=== PATIENT | female | born 1945 | race Caucasian/White ===

== ENCOUNTER → 2017-09-15 13:05 | Outpatient (CLI) | payer MEDICARE, OTHER, SELFPAY ==
[2017-09-15 14:13] LABS: Absolute Lymphocyte Count 1.25 X10^3/ul (0.83-4.51); Absolute Neutrophil Count 2.6 X10^3/uL (2.0-7.7); Basophil# 0.01 X10^3/uL; Basophil% 0.2 % (0-1); Eosinophil# 0.17 X10^3/uL; Eosinophils% 3.7 % (0-5); Hematocrit 42.8 % (37-47); Hemoglobin 13.8 g/dl (12.0-15.0); Lymphocyte # 1.25 X10^3/ul (4.0); Lymphocyte % 26.9 % (19-41); Mean Corp Hgb Conc 32.2 g/gl (32-36); Mean Corpuscular Hgb 28.6 pg (27.0-32.0); Mean Corpuscular Volume 88.6 fL (81-99); Mean Platelet Vol. 11.4 fl (6.2-12.0); Monocyte# 0.59 X10^3/uL; Monocyte% 12.7 % (0-10); Neutrophil # 2.61 X10^3/uL (2.7-7.7); Neutrophil % 56.3 % (47-70); Platelet Count 187 K/mm3 (150-450); RBC Distribution Width CV 13.4 % (11.6-14.6); RBC Distribution Width SD 43.3 fl (35.1-43.9); Red Blood Count 4.83 M/mm3 (4.2-5.4); White Blood Count 4.6 K/mm3 (4.4-11.0)
[2017-09-15 14:14] LABS: POSITIVE COUNT NO; POSITIVE DIFFERENTIAL NO; POSITIVE MORPHOLOGY NO
[2017-09-15 14:39] LABS: ALB/GLOB Ratio 1.2 RATIO (0.9-2.4); AST(SGOT) 22 U/L (15-37); Alanine Aminotransfer ALT/SGPT 29 U/L (13-56); Albumin, Serum 4.2 g/dL (3.2-5.0); Alkaline Phosphatase 88 U/L (45-117); Anion Gap 6 (5-15); BUN 16 mg/dL (7-18); BUN/Creat Ratio 15.1 RATIO (10-20); Calcium,Total 9.1 mg/dL (8.5-10.1); Chloride 107 mmol/L (98-107); Creatinine, Serum 1.06 mg/dL (0.55-1.02); EST Glomerular Filtration Rate 54 mL/min (>60); Est Glom Filt Rate - Afr Amer 66 mL/min (>60); Globulin 3.4 g/dL (2.2-4.2); Glucose 100 mg/dL (74-106); Potassium 4.5 mmol/L (3.5-5.1); Protein, Total 7.6 g/dL (6.4-8.2); Sodium Level 141 mmol/L (136-145)
== END ==
PROVIDERS: Family Provider Family Medicine; PCP Family Medicine; Visit Provider Internal Medicine Rheumatology
DX: M06.09 Rheumatoid arthritis without rheumatoid factor, multiple sites (principal); M65.331 Trigger finger, right middle finger; M65.332 Trigger finger, left middle finger; I10 Essential (primary) hypertension; E03.9 Hypothyroidism, unspecified; I70.90 Unspecified atherosclerosis
CPT/HCPCS: 36415; 80053; 85025

== ENCOUNTER → 2018-01-28 08:40 | Outpatient (CLI) | payer MEDICARE, OTHER, SELFPAY ==
[2018-01-28 11:04] LABS: AST(SGOT) 20 U/L (15-37); Alanine Aminotransfer ALT/SGPT 30 U/L (13-56); Albumin, Serum 4.3 g/dL (3.2-5.0); Alkaline Phosphatase 79 U/L (45-117); Bilirubin, Direct 0.14 mg/dL (0.00-0.30); Cholesterol 148 mg/dL (200); Globulin 3.7 g/dL (2.2-4.2); High Density Lipoprotein 64 mg/dL; Triglycerides 209 mg/dL; Very Low Density Lipoprotein 42 mg/dL (5-40)
== END ==
PROVIDERS: Family Provider Family Medicine; PCP Family Medicine; Visit Provider Physician Assistant Medical
DX: E78.5 Hyperlipidemia, unspecified (principal); Z79.899 Other long term (current) drug therapy
CPT/HCPCS: 36415; 80061; 80076

== ENCOUNTER → 2018-03-16 12:13 | Outpatient (CLI) | payer MEDICARE, OTHER, SELFPAY ==
[2018-03-16 14:44] LABS: Absolute Lymphocyte Count 1.44 X10^3/ul (0.83-4.51); Basophil# 0.02 X10^3/uL; Basophil% 0.4 % (0-1); Eosinophil# 0.19 X10^3/uL; Eosinophils% 3.7 % (0-5); Hematocrit 43.5 % (37-47); Lymphocyte # 1.44 X10^3/ul (4.0); Lymphocyte % 28.1 % (19-41); Mean Corp Hgb Conc 32.2 g/gl (32-36); Mean Corpuscular Hgb 28.5 pg (27.0-32.0); Mean Corpuscular Volume 88.6 fL (81-99); Monocyte# 0.52 X10^3/uL; Monocyte% 10.2 % (0-10); Neutrophil # 2.95 X10^3/uL (2.7-7.7); Neutrophil % 57.6 % (47-70); Platelet Count 183 K/mm3 (150-450); RBC Distribution Width CV 13.8 % (11.6-14.6); Red Blood Count 4.91 M/mm3 (4.2-5.4); White Blood Count 5.1 K/mm3 (4.4-11.0)
[2018-03-16 14:49] LABS: POSITIVE COUNT NO; POSITIVE DIFFERENTIAL NO; POSITIVE MORPHOLOGY NO
[2018-03-16 15:09] LABS: ALB/GLOB Ratio 1.4 RATIO (0.9-2.4); AST(SGOT) 24 U/L (15-37); Alanine Aminotransfer ALT/SGPT 33 U/L (13-56); Albumin, Serum 4.6 g/dL (3.2-5.0); Alkaline Phosphatase 78 U/L (45-117); Anion Gap 10 (5-15); BUN 18 mg/dL (7-18); BUN/Creat Ratio 15.8 RATIO (10-20); Calcium,Total 9.8 mg/dL (8.5-10.1); Chloride 106 mmol/L (98-107); Creatinine, Serum 1.14 mg/dL (0.55-1.02); EST Glomerular Filtration Rate 50 mL/min (>60); Est Glom Filt Rate - Afr Amer 60 mL/min (>60); Globulin 3.4 g/dL (2.2-4.2); Glucose 103 mg/dL (74-106); Potassium 4.9 mmol/L (3.5-5.1); Sodium Level 143 mmol/L (136-145)
== END ==
PROVIDERS: Family Provider Family Medicine; PCP Family Medicine; Visit Provider Internal Medicine Rheumatology
DX: M06.00 Rheumatoid arthritis without rheumatoid factor, unspecified site (principal); M65.331 Trigger finger, right middle finger; M65.332 Trigger finger, left middle finger; I10 Essential (primary) hypertension; E03.9 Hypothyroidism, unspecified; I70.90 Unspecified atherosclerosis
CPT/HCPCS: 36415; 80053; 85025

== ENCOUNTER → 2018-07-13 09:29 | Outpatient (CLI) | payer MEDICARE, OTHER, SELFPAY ==
[2018-07-13 12:38] LABS: Absolute Lymphocyte Count 1.82 X10^3/ul (0.83-4.51); Absolute Neutrophil Count 3.3 X10^3/uL (2.0-7.7); Basophil# 0.01 X10^3/uL; Basophil% 0.2 % (0-1); Eosinophil# 0.21 X10^3/uL; Eosinophils% 3.5 % (0-5); Hematocrit 43.7 % (37-47); Hemoglobin 14.1 g/dl (12.0-15.0); Lymphocyte # 1.82 X10^3/ul (4.0); Lymphocyte % 30.4 % (19-41); Mean Corp Hgb Conc 32.3 g/gl (32-36); Mean Corpuscular Hgb 28.5 pg (27.0-32.0); Mean Corpuscular Volume 88.3 fL (81-99); Mean Platelet Vol. 11.2 fl (6.2-12.0); Monocyte# 0.62 X10^3/uL; Monocyte% 10.4 % (0-10); Neutrophil # 3.32 X10^3/uL (2.7-7.7); Neutrophil % 55.5 % (47-70); Platelet Count 205 K/mm3 (150-450); RBC Distribution Width CV 13.6 % (11.6-14.6); RBC Distribution Width SD 43.7 fl (35.1-43.9); Red Blood Count 4.95 M/mm3 (4.2-5.4)
[2018-07-13 12:40] LABS: POSITIVE COUNT NO; POSITIVE DIFFERENTIAL NO; POSITIVE MORPHOLOGY NO
[2018-07-13 12:55] LABS: ALB/GLOB Ratio 1.2 RATIO (0.9-2.4); AST(SGOT) 21 U/L (15-37); Alanine Aminotransfer ALT/SGPT 32 U/L (13-56); Albumin, Serum 4.2 g/dL (3.2-5.0); Alkaline Phosphatase 82 U/L (45-117); Anion Gap 6 (5-15); BUN 19 mg/dL (7-18); BUN/Creat Ratio 17.3 RATIO (10-20); Bilirubin, Direct 0.11 mg/dL (0.00-0.30); Calcium,Total 9.5 mg/dL (8.5-10.1); Chloride 107 mmol/L (98-107); Cholesterol 143 mg/dL (200); EST Glomerular Filtration Rate 52 mL/min (>60); Est Glom Filt Rate - Afr Amer 63 mL/min (>60); Globulin 3.5 g/dL (2.2-4.2); Glucose 108 mg/dL (74-106); High Density Lipoprotein 61 mg/dL; Potassium 4.4 mmol/L (3.5-5.1); Protein, Total 7.7 g/dL (6.4-8.2); Sodium Level 142 mmol/L (136-145); Triglycerides 169 mg/dL; Very Low Density Lipoprotein 34 mg/dL (5-40)
== END ==
PROVIDERS: Family Provider Family Medicine; PCP Family Medicine; Referring Provider Nurse Practitioner Family; Visit Provider Nurse Practitioner Family
DX: M06.00 Rheumatoid arthritis without rheumatoid factor, unspecified site (principal); M65.331 Trigger finger, right middle finger; M65.332 Trigger finger, left middle finger; I10 Essential (primary) hypertension; E03.9 Hypothyroidism, unspecified; I70.90 Unspecified atherosclerosis
CPT/HCPCS: 80053; 80061; 82248; 85025

== ENCOUNTER → 2018-07-27 10:02 | Outpatient (CLI) | payer MEDICARE, OTHER, SELFPAY ==
[2018-07-18 13:04] VITALS: BMI 37.5
--- NOTE | 2018-07-27 10:04 | STE_ITS ---
Reason For Study: CHEST PAIN Stress Results Protocol: Dobutamine Stress Echocardiogram Maximum Predicted HR: 147 bpm Target HR: 125 bpm % Maximum Predicted HR: 88 % DurationHeart Rate Stage (mm:ss) (bpm) BP Dose BASELINE 65 130/87 DSE- 10 MCG 3:04 75 126/7610.00 DSE- 20 MCG 3:14 115 134/5520.00 DSE- 30 MCG 2:55 130 134/6730.00 RECOVERY 90 105/65 Stress Duration: 9:13 mm:ss Maximum Stress HR: 130 bpm Baseline Echocardiogram Findings The estimated ejection fraction is 65 %. Stress Echo Wall motion Data Resting WM Intermediate WM Stress WM Resting Wall Motion Wall Motion Stress No regional wall motion No regional wall motion abnormalities noted. abnormalities noted. EKG Data Normal intervals are noted. Low voltage in limb and precordial leads. The patient was titrated from 10 mcg to a maximun of 30 mcg of dobutamine during the stress. The maximum heart rate attained was 130 beats per minute. This was 88% of maximum predicted heart rate. During dobutamine infusion, there were no ST or T wave changes noted to suggest ischemia. No clinical angina was noted. Interpretation Summary The estimated ejection fraction is 65 %. Normal adequate dobutamine echocardiogram. Negative for ischemia by EKG and echocardiographic criteria. No anginal symptoms noted. Rare PVC noted. Appropriate blood pressure response to dobutamine. Final LVEF is 75%. Test terminated due to the attainment of target heart rate. No complications. Ordering Physician: Leon Campbell Referring Physician: Leon Campbell Performed By: Megan Albert RDCS
--- OUTSIDE RECORDS SUMMARY | 2018-10-01 02:44 | XMS RPT_ITS ---
:1945 Author Organization [place] Support Name Relationship Address Phone CESARJAE FUNG Unavailable [address] + [place] [address] [place], LLUVIA Unavailable [address] + [place] [address] R Unavailable Unavailable Unavailable JAE CESAR Unavailable [address] + [place] [address] [place], LLUVIA Unavailable [address] + [address] [place] [address] R Unavailable Unavailable Unavailable JAE CESAR Unavailable [address] + [place] [address] [place], LLUVIA Unavailable [address] + [address] [place] [address] R Unavailable Unavailable Unavailable JAE CESAR Unavailable [address] + [place] [address] [place], LLUVIA Unavailable [address] + [address] [place] [address] R Unavailable Unavailable Unavailable JAE CESAR Unavailable [address] + [place] [address] [place], LLUVIA Unavailable [address] + [address] [place] [address] R Unavailable Unavailable Unavailable JAE CESAR Unavailable [address] + [place] [address] [place], LLUVIA Unavailable [address] + [address] [place] [address] R Unavailable Unavailable Unavailable JAE CESAR Unavailable [address] + [place] [address] [place], LLUVIA Unavailable [address] + [address] [place] [address] R Unavailable Unavailable Unavailable CESAR, JAE Unavailable [address] [place] [address] + [place] [address] [place], LLUVIA Unavailable [address] + [address] [place] [address] R Unavailable Unavailable Unavailable CESAR, JAE Unavailable [address] [place] [address] + [place] [address] J[place], LLUVIA Unavailable [address] + [address] [place] [address] R Unavailable Unavailable Unavailable CESAR, JAE Unavailable [address] [place] [address] + [place] [address] [place], LLUVIA Unavailable [address] + [address] [place] [address] R Unavailable Unavailable Unavailable CESAR, JAE Unavailable [address] [place] [address] + [place] [address] [place], LLUVIA Unavailable [address] + [address] [place] [address] R Unavailable Unavailable Unavailable Care Team Providers Name Role Phone Adrian Del Toro Attending Unavailable Adrian Del Toro Referring Unavailable Malys, Nicole Primary Care Unavailable Krystle, Carolyn Consulting Unavailable BLANCA DAVID Consulting Unavailable Krystle, Carolyn Attending Unavailable Malys, Nicole Primary Care Unavailable Leon Campbell Attending Unavailable Malys, Nicole Referring Unavailable Leon Campbell Attending Unavailable Malys, Nicole Referring Unavailable Leon Campbell Attending Unavailable Leon Campbell Referring Unavailable Malys, Nicole Primary Care Unavailable Mae Meyer Attending Unavailable Mae Meyer Referring Unavailable Malys, Nicole Primary Care Unavailable Shwetha Guajardo Attending Unavailable Leon Campbell Attending Unavailable Malys, Nicole Referring Unavailable Malys, Nicole Primary Care Unavailable Amie Santo Attending Unavailable Nimalanmark, Carolyn Attending Unavailable Nimalanmark, Carolyn Referring Unavailable Malys, Nicole Primary Care Unavailable William Moses Attending Unavailable Malys, Nicole Referring Unavailable PROBLEMS PROBLEMS DATE TYPE CONDITION / CODE ATTENDING STATUS SOURCE 07/18/2018 Unknown R07.9 - Chest pain, Leon Campbell Active [facility] unspecified / Community R07.9(ICD-10) Hospital Repository 07/18/2018 Unknown I25.10 - Leon Campbell Active [facility] Atherosclerotic heart Community disease of [place] [facility] coronary artery Repository without angina pectoris / I25.10(ICD-10) 07/18/2018 Unknown Z95.5 - Presence of Leon Campbell Active [facility] coronary angioplasty Community implant and graft / Hospital Z95.5(ICD-10) Repository 07/18/2018 Unknown I25.2 - Old Leon Campbell Active [facility] myocardial infarction Community / I25.2(ICD-10) Hospital Repository 07/18/2018 Unknown E78.5 - Leon Campbell Active [facility] Hyperlipidemia, Community unspecified / Hospital E78.5(ICD-10) Repository 07/13/2018 Unknown M06.00 - Rheumatoid Roof, Adrian Rojas Active [facility] arthritis without Community rheumatoid factor, Hospital unspecified site / Repository M06.00(ICD-10) 07/13/2018 Unknown M65.331 - Trigger Roof, Adrian H Active [facility] finger, right middle Community finger / Hospital M65.331(ICD-10) Repository 07/13/2018 Unknown M65.332 - Trigger Roof, Adrian H Active [facility] finger, left middle Community finger / Hospital M65.332(ICD-10) Repository 07/13/2018 Unknown E03.9 - Roof, Adrian Rojas Active [facility] Hypothyroidism, Community unspecified / Hospital E03.9(ICD-10) Repository 07/13/2018 Unknown I70.90 - Unspecified Roof, Adrian Rojas Active [facility] atherosclerosis / Community I70.90(ICD-10) Hospital Repository 03/16/2018 Unknown I10 - Essential Vellanmark Carolyn Active [facility] (primary) Community hypertension / Hospital I10(ICD-10) Repository 09/15/2017 Unknown M06.09 - Rheumatoid Vellanki, Carolyn Active [facility] arthritis without Community rheumatoid factor, Hospital multiple sites / Repository M06.09(ICD-10) PROCEDURES PROCEDURES No Procedure Records FoundRESULTS RESULTS INITIAL VISIT Observed: 08/05/2018 Status: UNK Source: [facility] (RHEUMATOLOGY) 3:53 PM [facility]OSPITALS REPOSITORY Chief Complaint Consult for RA Reference Documentation See scanned note Office Note: history form. History of Present Illness This is a 73 year old patient who presents on referral by Dr. Tran for Transition of care for RA. Dx with RA 4 years ago when she presented with back pain and peripheral arthritis. . On plaquenil since then. Med has helped. Hasn't had to escalate therapy. Hands, wrists are ok. Has L hip bursitis. L ankle swelling since age 42.--has had a shot in ankle. R foot OA. B TKR. Now doing ok Takes one ibuprofen daily and works well. Review of Systems Constitutional: recent weight gain, but no fever, no chills, no night sweats and no recent weight loss. Eyes: dryness of the eyes, but no eye pain, no worsening vision, no conjunctival irritation, no red eyes, no purulent discharge from the eyes and no itching of the eyes. ENT: no hearing change, no tinnitus, no nasal congestion, no mouth sores, no dry mouth, no earache, no nosebleeds, no sore throat and no hoarseness. Cardiovascular: lower extremity edema, but no chest pain and no palpitations. Respiratory: cough, but no shortness of breath and no wheezing. Gastrointestinal: heartburn, but no abdominal pain, no nausea, no vomiting, bowel movements have not recently changed and no blood in stools. Genitourinary: no dysuria, no nocturia, no hematuria, no change in urinary frequency and no genital lesion. Musculoskeletal: back pain, joint pain localized to one or more joints, morning stiffness and joint swelling: , but no myalgias, no arthralgias, no muscle weakness, no jaw claudication and as noted in HPI. Integumentary: Raynaud's , but no skin lesions, no rashes, no patchy hair loss, no photosensitivity, no clubbing, no nail abnormalities and no psoriasis. Neurological: headache, but no paresthesia, no focal signs, no convulsions, no dizziness, no confusion, no fainting, no limb weakness and no difficulty walking. Psychiatric: anxiety, but no depression and no sleep disturbances. Endocrine: no polyuria, no polydipsia, no temperature intolerance and no fatigue. Hematologic/Lymphatic: no tendency for easy bleeding, no tendency for easy bruising and no swollen glands. All other systems have been reviewed and are negative for complaint. 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) Past Medical History History of Benign essential hypertension (401.1) (I10) History of Cataracts, bilateral (366.9) (H26.9) History of coronary artery disease (V12.59) (Z86.79) History of hypothyroidism (V12.29) (Z86.39) History of myocardial infarction (412) (I25.2) History of CHANELL on CPAP (327.23,V46.8) (G47.33,Z99.89) History of Persistent headaches (784.0) (R51) Surgical History History of Cataract surgery History of Coronary artery stent placement History of Knee replacement Family History Family history of cardiac disorder (V17.49) (Z82.49) Family history of cerebrovascular accident (CVA) (V17.1) (Z82.3) Family history of cardiac disorder (V17.49) (Z82.49) Family history of cerebrovascular accident (CVA) (V17.1) (Z82.3) Family history of asthma (V17.5) (Z82.5) Family history of diabetes mellitus (V18.0) (Z83.3) Family history of hypertension (V17.49) (Z82.49) Family history of malignant neoplasm (V16.9) (Z80.9) Social History Born in [place] Does little exercise (V49.89) Does not use illicit drugs (V49.89) (Z78.9) Never a smoker No alcohol use Occasional caffeine consumption Sleeps 6 -7 hours a day Allergies No Known Drug Allergies Recorded By: Ruby Gunter; 08/05/2018 1:34:02 PM Current Meds Medication NameInstruction AmLODIPine Besylate 2.5 MG Oral TabletTAKE 1 TABLET DAILY DIRECTED. Aspir-81 81 MG Oral Tablet Delayed Release Hydroxychloroquine Sulfate 200 MG Oral TabletTAKE 1 TABLET TWICE DAILY WITH FOOD. Levothyroxine Sodium 50 MCG Oral TabletTAKE ONE TABLET BY MOUTH EVERY DAY Losartan Potassium 25 MG Oral TabletTAKE 1 TABLET DAILY DIRECTED. Metoprolol Tartrate 25 MG Oral TabletTAKE 1 TABLET TWICE DAILY. Vitals Vital Signs Recorded: 05Aug2018 01:31PM Dtmvishthun38.7 F, Oral Heart Rate76 Ygctnozm780, LUE, Sitting Fcopqnypj60, LUE, Sitting Blood Pressure Cuff SizeLarge Height5 ft 5.5 in Glhwae717 lb BMI Lrlfmlihhr75.2 BSA Calculated2.1 O2 Upmigmwbpi14 Physical Exam Constitutional General appearance: Alert and in no acute distress. Eyes Inspection of eyes: Sclera and conjunctiva were normal. Ears, Nose, Mouth, and Throat Hearing: Normal. Neck Neck Exam: Appearance of the neck was normal. No neck masses observed. Pulmonary Respiratory assessment: No respiratory distress, normal respiratory rhythm and effort. Cardiovascular Exam for edema: No peripheral edema. Musculoskeletal Examination of gait: Normal. Inspection of digits and nails: No clubbing or cyanosis of the fingernails. Inspection/palpation of joints, bones, and muscles: Abnormal. (no synovitis of MCP, PIP, wrists, elbows, shoulders. Knees s/p replacement L ankle swelling). Appearance - no erythema, no ecchymosis, no amputations, no deformity, no asymmetry, no contractures and normal spinal curvature. Palpation - no increased warmth, no masses, no click and no crepitus. Range of Motion: Normal movement of all extremities. Assessment of Stability: Normal. Muscle strength/tone: Normal. Skin Skin inspection: Normal skin color and pigmentation, normal skin turgor and no visible rash. Psychiatric Judgment and insight: Intact. Orientation: Oriented to person, place, and time. Mood and affect: Normal. Recent and remote memory: Normal. 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) (M06.09) Long-term use of Plaquenil (V58.69) (Z79.899) Orders Ophthalmology Follow-Up ;every 1 year; Next 03Nov2018; Status:Active For: 'Long-term use of Plaquenil'Ordered By: 'Susan Grossman' Renew: Hydroxychloroquine Sulfate 200 MG Oral Tablet; TAKE 1 TABLET TWICE DAILY WITH FOOD Rx By: Susan Grossman; Dispense: 90 Days ; #:180 Tablet; Refill: 3;For: Rheumatoid arthritis of multiple sites with negative rheumatoid factor; CAR = N; Verified Transmission to [facility] [address] [place],; Last Updated By: Rickey Nunez; 08/05/2018 1:52:50 PM Albumin, Serum; Specimen Source:Blood (D); Status:Active; Requested for:05Aug2018; Perform:Lab Services - Lab To Draw (Blood Test); Due:03Nov2018;Ordered; For:Rheumatoid arthritis of multiple sites with negative rheumatoid factor; Ordered By:Susan Grossman; ALT - Alanine Aminotransferase, Serum; Specimen Source:Blood (BLD); Status:Active; Requested for:05Aug2018; Perform:Lab Services - Lab To Draw (Blood Test); Due:03Nov2018;Ordered; For:Rheumatoid arthritis of multiple sites with negative rheumatoid factor; Ordered By:Susan Grossman; AST; Specimen Source:Blood (BLD); Status:Active; Requested for:05Aug2018; Perform:Lab Services - Lab To Draw (Blood Test); Due:03Nov2018;Ordered; For:Rheumatoid arthritis of multiple sites with negative rheumatoid factor; Ordered By:Susan Grossman; Blood Urea Nitrogen, Serum; Specimen Source:Blood (BLD); Status:Active; Requested for:05Aug2018; Perform:Lab Services - Lab To Draw (Blood Test); Due:03Nov2018;Ordered; For:Rheumatoid arthritis of multiple sites with negative rheumatoid factor; Ordered By:Susan Grossman; C Reactive Protein, Serum; Specimen Source:Blood (BLD); Status:Active; Requested for:05Aug2018; Perform:Lab Services - Lab To Draw (Blood Test); Due:03Nov2018;Ordered; For:Rheumatoid arthritis of multiple sites with negative rheumatoid factor; Ordered By:Susan Grossman; Complete Blood Count + Differential; Specimen Source:Blood (BLD); Status:Active; Requested for:05Aug2018; Perform:Lab Services - Lab To Draw (Blood Test); Due:03Nov2018;Ordered; For:Rheumatoid arthritis of multiple sites with negative rheumatoid factor; Ordered By:Susan Grossman; Creatinine, Serum; Specimen Source:Blood (BLD); Status:Active; Requested for:05Aug2018; Perform:Lab Services - Lab To Draw (Blood Test); Due:03Nov2018;Ordered; For:Rheumatoid arthritis of multiple sites with negative rheumatoid factor; Ordered By:Susan Grossman; Sedimentation Rate, Erythrocyte; Specimen Source:Blood (BLD); Status:Active; Requested for:05Aug2018; Perform:Lab Services - Lab To Draw (Blood Test); Due:03Nov2018;Ordered; For:Rheumatoid arthritis of multiple sites with negative rheumatoid factor; Ordered By:Susan Grossman; Provider Impressions The patient's labs, radiology images and reports, and other tests since previous appointment were obtained, reviewed, and summarized as applicable from the physician portal, electronic medical records s teky and/or outside sources. Pertinent positive and negative findings were considered in medical decision making. Old records were reviewed All questions were answered and the patient was counseled regarding the diagnosis, prognosis, risk and benefits of the various treatment options and the importance of compliance with therapy. Time based appointment _30__minutes Patient Discussion/Summary RA on plaquenil therapy. Doing well. Ok to take 1 ibuprofen as needed. Continue with plaquenil eye checks If continues to stay stable, would recommend decreasing plaquenil dosing to once daily it was a pleasure meeting you follow up 6 months Patient Education Homegoing instructions As always, a healthy lifestyle helps chronic diseases. Eat a balanced diet, exercise at least 30 minutes a day/5 days a week and be up to date on screening health exams . Signatures Electronically signed by : Susan Grossman MD; Aug 05 2018 3:53PM EST (Author) STRESS TEST ECHO W/O Observed: 07/27/2018 Status: F Source: [place] CONTRAST 3:43 PM [facility] REPOSITORY [facility] Cardiovascular Services [address] [place] [address] Stress Test Echo w/o Contrast MR#: [id number] Acct: [id number] Name: RADHA CESAR I Rep #: [id number] : 1945 73 From: Leon Campbell MD Primary Care: Nicole Tran DO Status: REG CLI Ordering Dr: Leon Campbell MD Sex: F C Reason For Study: CHEST PAIN Stress Results Protocol: Dobutamine Stress Echocardiogram Maximum Predicted HR: 147 bpm Target HR: 125 bpm % Maximum Predicted HR: 88 % DurationHeart Rate Stage (mm:ss) (bpm) BP Dose BASELINE 65 130/87 DSE- 10 MCG 3:04 75 126/7610.00 DSE- 20 MCG 3:14 115 134/5520.00 DSE- 30 MCG 2:55 130 134/6730.00 RECOVERY 90 105/65 Stress Duration: 9:13 mm:ss Maximum Stress HR: 130 bpm Baseline Echocardiogram Findings The estimated ejection fraction is 65 %. Stress Echo Wall motion Data Resting WM Intermediate WM Stress WM Resting Wall Motion Wall Motion Stress No regional wall motion No regional wall motion abnormalities noted. abnormalities noted. EKG Data Normal intervals are noted. Low voltage in limb and precordial leads. The patient was titrated from 10 mcg to a maximun of 30 mcg of dobutamine during the stress. The maximum heart rate attained was 130 beats per minute. This was 88% of maximum predicted heart rate. During dobutamine infusion, there were no ST or T wave changes noted to suggest ischemia. No clinical angina was noted. Interpretation Summary The estimated ejection fraction is 65 %. Normal adequate dobutamine echocardiogram. Negative for ischemia by EKG and echocardiographic criteria. No anginal symptoms noted. Rare PVC noted. Appropriate blood pressure response to dobutamine. Final LVEF is 75%. Test terminated due to the attainment of target heart rate. No complications. Ordering Physician: Leon Campbell Referring Physician: Leon Campbell Performed By: Megan Albert, [facility] 07/27/18 1543 Date Leon Campbell MD CC: Leon Campbell MD; Nicole Tran DO Date Dictated: 07/27/18 1030 Date Transcribed: 07/27/18 1543 Lab Manager: Signed CARDIOLOGY VISIT Observed: 07/18/2018 Status: F Source: [place] REPORT 1:23 PM [facility] REPOSITORY [facility] [address] [place] [address] [address] [place] [address] OFFICE VISIT Date of Service: 07/18/18 MR#: [id number] Acct: [id number] Name: RADHA CESAR I Rep #: [id number] : 1945 Provider: Leon Capmbell MD Age/Sex: 73/F Location: [facility] Status: Signed HPI HPI Chief Complaint: Routine f/u Details: Details: RADHA CESAR, is a 73 F who presents to the office today for routine follow-up. Patient is a history of hypertension, hypercholesterolemia, coronary disease status post non-STEMI with drug-eluting stent to the right coronary artery [place] [address] Arzola at [facility]. Patient originally presented in November 2016 for evaluation of preoperative stratification for knee surgery. She underwent a 2D echo with Doppler which showed normal LV function, moderate concentric LVH, unable to quantitate RVSP. She then underwent a dobutamine echocardiogram which was negative for inducible ischemia. She then underwent a left total knee arthroplasty by Dr. López in November 2016 without complications. She apparently is going to move to [place], but will continue to come here for her follow-up appointments. Around 2017 she had an episode of similar substernal chest pain to her angina with her original stent in 2006, but located in her mid epigastrium region rather than her midsternal area. This lasted for several minutes and then completely resolved. This occurred at rest, and she has had no exertional symptoms since that time per In our office today her blood pressure is 122/60, pulse is 76 and regular. Her physical exam is as below. Her lipids as of 01/28/18 show an LDL of 42 and an HDL of 64. Her lipids as of 07/13/18 show an HDL of 61 and LDL of 48. Intake Vital Signs07/18/18 Height 5 ft 5.5 in 07/18/18 Weight: 229 lb 07/18/18 Body Mass Index (BMI) 37.5 07/18/18 Blood Pressure 122/60 H Intake Visit Reasons: 6 M FU Placement Director Required: No Is patient in pain?: No Allergies No Known Allergies Allergy (Verified 07/18/18 13:07) Medications Cholecalciferol (Vitamin D3) [Vitamin D3] 2,000 unit PO DAILY 07/17/16 [History Confirmed 07/18/18] Hydroxychloroquine [Plaquenil] 200 mg PO BID 07/17/16 [History Confirmed 07/18/18] Levothyroxine [Synthroid] 50 mcg PO DAILY 07/17/16 [History Confirmed 07/18/18] aspirin 81 mg tablet,delayed release 81 mg PO QDAY 02/03/18 [History Confirmed 07/18/18] nitroglycerin 0.4 mg sublingual tablet 0.4 mg SUBLINGUAL Q5- 15M PRN 02/03/18 [History Confirmed 03/23/18] amlodipine 2.5 mg tablet 2.5 mg PO DAILY #90 tab 02/04/18 [Rx Confirmed 07/18/18] lovastatin 40 mg tablet 40 mg PO QPM #90 tab 02/04/18 [Rx Confirmed 07/18/18] metoprolol tartrate 25 mg tablet 12.5 mg PO BID #90 tab 02/04/18 [Rx Confirmed 07/18/18] losartan 25 mg tablet 25 mg PO DAILY #90 tab 03/02/18 [Rx Confirmed 07/18/18] [facility] Medical History Chest pain (Acute) Left ventricular hypertrophy (Chronic) CHANELL (obstructive sleep apnea) (Chronic) Hyperlipidemia (Chronic) Hypertension (Chronic) Atherosclerotic heart disease of [place] coronary artery without angina pectoris (Chronic) History of non-ST elevation myocardial infarction (NSTEMI) (Chronic) Coreas's palsy (Acute) Depression (Acute) Hypothyroidism (Acute) Rheumatoid arthritis (Acute) Surgical History Stented coronary artery (Chronic) H/O arthroscopic knee surgery (Acute) H/O tubal ligation (Acute) History of lumpectomy of left breast (Acute) History of right knee joint replacement (Acute) History of tonsillectomy (Acute) Family History Father , age 70 CVA (cerebral vascular accident) Heart disease Mother , Age 86 CVA (cerebral vascular accident) Cancer Bladder Cancer Heart disease Brother CAD (coronary artery disease) Heart disease Sister CAD (coronary artery disease) Pacemaker Asthma Diabetes Heart disease Cancer Social History Smoking Status: Never smoker second hand exposure: No alcohol intake: never substance use type: does not use what type of physical activity do you participate in: none ROS Const Const: Positive for other (Had 6 minute episode of chest pain week before , None since.); negative for fatigue, weakness, body ache, fever(s), headache(s), chills, frequent falls, night sweats, daytime sleepiness, difficulty sleeping, excessive sweating, weight gain, weight loss, increased appetite, poor appetite or anorexia Eyes Eyes: Negative for blind spots, loss of peripheral vision, transient loss of vision, blurry vision, change in vision, double vision, floaters, tunnel vision or other ENT ENT: Negative for headache(s), dizziness, hearing loss, tinnitus, Nosebleed/epistaxis, balance problems, post nasal drip, lip swelling, tongue swelling, bleeding gums, hoarseness, neck pain, dry mouth or other Cardio Chest Pain: Yes (as previously mentioned: midsternal while sitting in chair) Frequency: other (Only one occurrence week of .) Character: tightness (not severe, more epigastric then midsternal. Rated a 3 on pain scale) Location: epigastric (and below) Recurrence: other (none) Palpitations: No Edema: None Muscle aches with walking: None Resp Respiratory: Negative for SOB with activity, SOB at rest, SOB orthopnea\SOB lying down, Cough, Coughing up blood/hemoptysis, chest congestion, pain on inspiration, snoring, stridor, wheezing, crackles, paroxysmal nocturnal dyspnea or other GI GI: Negative nausea, vomiting, heartburn, constipation, belching, bloating, cramping, vomiting blood/hematemesis, bright, red blood in stools, black,tarry stools, loose stools, Difficulty Swallowing or other : Negative for hematuria, frequent nighttime urination/ nocturia, erectile dysfunction or abnormal vaginal bleeding Musc Musc: Negative for balance problems, muscle aches/ myalgia, muscle weakness or joint pain Skin Skin: Negative redness, non-healing lesions, rash, unusual bruising, skin ulcer, wounds, jaundice or other Neuro Neuro: Negative for weakness, headache(s), frequent falls, blurry vision, double vision, dizziness, lightheadedness, near syncope, syncope, orthostatic symptoms, confusion, memory loss, restless legs, vertigo, seizures, lack of coordination or other Epi Hematologic/Lymphatic: Negative for easy bleeding, easy bruising, enlarged lymph nodes or other Endo Endo: Negative for fatigue, excessive sweating, cold intolerance, heat intolerance, flushing, increased thirst/drinking, increased hunger, hair loss, hair growth or other Psych Psych: Negative for anxiety, depression, thoughts of harming anyone, thoughts of harming yourself, visual hallucinations, panic attacks or audible hallucinations Allergy Allergy/Immunology: Negative for lip swelling, Negative for tongue swelling, Negative for rash, Negative for throat swelling, Negative for hives Cardiology Exam Const Appearance: cooperative, healthy appearing and no acute distress Nutritional Appearance: well nourished Orientation: alert, oriented x3 and oriented to person Head Head: normal to inspection, atraumatic and normocephalic Nose: external nose normal Face and Sinus: face symmetric Mouth: oral mucosae normal Eyes General: appearance normal, both eyes and all related structures Eyelids: eyelids normal Conjunctivae: conjunctivae normal Pupils: PERRL and normal by confrontation EOM: EOM intact bilaterally Neck Neck: normal visual inspection and full ROM Carotids: normal carotid upstroke Chest Chest inspection: normal inspection of the chest Auscultation: Bilateral: Clear to Auscultation Cardio Palpation: normal PMI Rate: regular rate Rhythm: regular rhythm Heart sounds: S1 normal and S2 normal GI GI: normal to inspection, no hepatosplenomegaly and bowel sounds present Neuro General: alert, oriented x3, awake, CN's II-XI intact bilaterally and moves all extremities Skin Skin: no rashes or lesions noted Extremities Pulses: Normal: Right Femoral Pulse, Left Femoral Pulse, Right Dorsalis Pedis Pulse, Left Dorsalis Pedis Pulse, Right Posterior Tibial Pulse, Left Posterior Tibial Pulse, Right Radial Pulse, Left Radial Pulse Lower Extremity Edema: None: Bilateral Psych Psychological: normal affect Assessment AND Plan 1. Chest pain R07.9 Plan 1. Chest pain: The patient had a recurrent episode of atypical nonexertional chest pain with similar qualities but different location to her angina only several years ago. She has no exertional anginal symptoms and is done well since her knee replacement, but she does not formally exercise. After discussing the options with the patient, we have agreed out of an abundance of caution to proceed with repeat dobutamine echocardiogram to evaluate her previously stented area as well as her other coronary territories. If this is grossly abnormal for ischemia she may require repeat catheterization. In the meantime her blood pressure is well controlled and I recommended that she continue amlodipine, baby aspirin, losartan and metoprolol. Orders Orders: 2. Hyperlipidemia E78.5 Plan 2. Hyperlipidemia: Her LDL and HDL cholesterol are at goal. Continue lovastatin. Patient Riaz takes vitamin D for myalgias, and I believe it is reasonable to proceed with co-Q10 in order to combs any additional benefits from possible statin induced side effects. 3. Return office in 6 months. This note was generated using a voice recognition system and there may be incorrect words, spelling or punctuation that were not noted when reviewing the office note prior to saving. Plan Detail Other Orders Orders: Follow Up +6M (Adrian) Coding Level of Care Code Off vis,est,level 3 Diagnoses Chest pain R07.9 Hyperlipidemia E78.5 Coding Level of Care Code Off vis,est,level 3 Diagnoses Chest pain R07.9 Hyperlipidemia E78.5 Supplemental Info Supplemental Information Labs LDL Cholesterol 48 mg/dL (0-130) 07/13/18 HDL Cholesterol 61 mg/dL (40-) 07/13/18 Triglycerides 169 mg/dL (-199) 07/13/18 VLDL Cholesterol 34 mg/dL (5-40) 07/13/18 Diagnostics Echocardiogram 03/07/15 Stress Echocardiogram 03/08/15 07/18/18 1323 <Electronically signed by Leon Campbell MD> Date Leon Campbell MD Cosigner Signature: Date (if applicable) CC: Nicole Tran DO CBC W/DIFF, AUTOMATED Collected: 07/13/2018 Status: F Source: [facility] 9:39 AM [facility] REPOSITORY Order Comment: DR DEL TORO ORDERED LIVER AND LIPID DR LEAL ORDERED CMP AND CBCD TYPE CODE TESTS RESULT OUT OF RANGE REFERENCE UNITS LAB L100.1000 4.4-11.0 K/mm3 Normal WBC 6.0 LAB L100.1200 4.2-5.4 M/mm3 Normal RBC 4.95 LAB L100.1300 12.0-15.0 g/dl Normal HGB 14.1 LAB L100.1400 37-47 % Normal HCT 43.7 LAB L100.1500 81-99 fL Normal MCV 88.3 LAB L100.1600 27.0-32.0 pg Normal MCH 28.5 LAB L100.1700 32-36 g/gl Normal MCHC 32.3 LAB L100.1810 11.6-14.6 % Normal RDW CV 13.6 LAB L100.1820 35.1-43.9 fl Normal RDW SD 43.7 LAB L100.1900 150-450 K/mm3 Normal PLT 205 LAB L100.2000 6.2-12.0 fl Normal MPV 11.2 LAB L100.2100 47-70 % Normal NEUT% 55.5 LAB L100.2200 19-41 % Normal LY% 30.4 LAB L100.2300 0-10 % High MONO% 10.4 LAB L100.2400 0-5 % Normal EO% 3.5 LAB L100.2500 0-1 % Normal BASO% 0.2 LAB L100.2550 0.0-0.9 % Normal IM GRAN % 0.000 Result Comment: IG% - Immature Granulocytes (promyelocytes, myelocytes and metamyelocytes) > 1% indicates that a LEFT SHIFT is Present. LAB L100.2620 2.0-7.7 X10 3/uL Normal Absolute Neut 3.3 LAB L100.2720 0.83-4.51 X10 3/ul Normal Absolute Lymph 1.82 Performed By: #### L100.0100 #### [facility] [address] [place], [place], [address] COMPREHENSIVE METABOLIC Collected: 07/13/2018 Status: F Source: [facility] 9:39 AM [facility]POSIT[facility] Order Comment: DR DEL TORO ORDERED LIVER AND LIPID DR LEAL ORDERED CMP AND CBCD TYPE CODE TESTS RESULT OUT OF RANGE REFERENCE UNITS LAB L501.0100 74-106 mg/dL High GLU 108 Result Comment: Fasting Glucose result from 100 to 125 mg/dL suggests IMPAIRED HOMEOSTASIS per A.D.A. criteria. Please note revised GLUCOSE reference range effective 2017. LAB L501.1000 7-18 mg/dL High BUN 19 LAB L501.1100 0.55-1.02 mg/dL High CREAT,SERUM 1.10 Result Comment: The validity of the calculated GFR AND GFRAA in patients over 70 years has not been determined. Clinical correlation is essential. LAB L501.1110 >60 mL/min Low EST GFR 52 Result Comment: Non- GFR Calc LAB L501.1115 >60 mL/min Normal EST GFR - AA 63 Result Comment: GFR Calc LAB L501.1300 10-20 RATIO Normal BUN/CRE 17.3 LAB L501.1500 6.4-8.2 g/dL T Normal PROT 7.7 LAB L501.1800 3.2-5.0 g/dL Normal ALB 4.2 LAB L501.1950 2.2-4.2 g/dL Normal GLOB 3.5 LAB L501.2000 0.9-2.4 RATIO Normal A/G 1.2 LAB L501.2200 8.5-10.1 mg/dL CA Normal 9.5 LAB L501.4100 15-37 U/L Normal AST 21 LAB L501.4305 45-117 U/L Normal ALK P 82 LAB L501.4405 13-56 U/L Normal ALT 32 LAB L501.4600 0.20-1.00 mg/dL T Normal BILI 0.50 LAB L501.5300 136-145 mmol/L NA Normal 142 LAB L501.5600 3.5-5.1 mmol/L K Normal 4.4 LAB L501.5900 98-107 mmol/L CL Normal 107 LAB L501.6100 21.0-32.0 mmol/L Normal CO2 29.0 LAB L501.6200 5-15 Normal GAP 6 Performed By: #### L500.4050, L500.4100, L501.4700 #### [facility] [address] [place], [address] LIPID PROFILE Collected: 07/13/2018 Status: F Source: [place] 9:39 AM [facility] REPOSIT[facility] Order Comment: DR DEL TORO ORDERED LIVER AND LIPID DR LEAL ORDERED CMP AND CBCD TYPE CODE TESTS RESULT OUT OF RANGE REFERENCE UNITS LAB L501.4900 200 mg/dL Normal CHOL 143 Result Comment: <200 mg/dL Desirable 200-240 mg/dL Borderline >240 mg/dL High Risk LAB L501.5000 mg/dL Normal TRIG 169 Result Comment: The drugs N-Acetylcysteine and Metamizole may falsely depress this assay. Serum Triglycerides Reference Interval Normal <150 mg/dL Borderline high 150 - 199 mg/dL High 200 - 499 mg/dL Very High > or = 500 mg/dL LAB L501.6400 mg/dL Normal HDL 61 Result Comment: The drugs N-Acetylcysteine and Metamizole may falsely depress this assay. Reference Range HDL <40 mg/dL Low HDL Cholesterol HDL >or= 60 mg/dL High HDL Cholesterol LAB L501.6500 0-130 mg/dL Normal LDL 48 LAB L501.6600 5-40 mg/dL Normal VLDL 34 Performed By: #### L500.4050, L500.4100, L501.4700 #### [facility] [address] [place], [address] BILIRUBIN, DIRECT Collected: 07/13/2018 Status: F Source: [place] 9:39 AM [facility] REPOSIT[facility] Order Comment: DR DEL TORO ORDERED LIVER AND LIPID DR LEAL ORDERED CMP AND CBCD TYPE CODE TESTS RESULT OUT OF RANGE REFERENCE UNITS LAB L501.4700 0.00-0.30 mg/dL Normal D BILI 0.11 Performed By: #### L500.4050, L500.4100, L501.4700 #### [facility] [address] [place], [address] PULMONARY VISIT REPORT Observed: 03/23/2018 Status: F Source: [place] 11:39 AM [facility] REPOSITORY [facility] [address] [place], [place] [address] OFFICE VISIT Date of Service: 03/23/18 MR#: [id number] Acct: [id number] Name: RADHA CESAR I Rep #: [id number] : 1945 Provider: William Moses MD Age/Sex: 72/F Location: [facility] Status: Signed Assessment AND Plan Problems 1. CHANELL (obstructive sleep apnea) G47.33 Plan Patient reports that she has been doing well on her CPAP 9 cm of water. Patient denies any issues with the interface at this time. Patient continues to wake up and feel refreshed throughout the day. Patient does have joint pains, but is seeing rheumatology. Weight is slightly down compared to previous. No indication for repeat titration study. Continue CPAP at 9 cm of water. HPI 1 Y FU: Chief Complaint: Obstructive sleep apnea Details: Patient is a 72-year-old female, currently under the care of Dr. Tran, who presents for evaluation secondary to obstructive sleep apnea. Since last visit, patient denies any ER visits, hospitalizations or prednisone burst. Patient does struggle with joint pains, but is followed by rheumatology. Patient reports that she has had some mild improvement in weight that she attributes to dietary modification. Patient continues to be significantly limited in activity secondary to orthopedic type of complaints. Patient reports that she has been compliant with her CPAP therapy. Patient states she has no pain at the interface site, dry mouth or epistaxis. Patient wakes refreshed and does not report needing naps during the day. Patient does report a recent head cold that she states has persisted for approximately 2 weeks. Patient is unclear if this is related to allergies. Patient does believe that she is improving at this time. This did not interfere with her compliance with CHANELL therapy. Patient does not report any concomitant fever, chills, nausea or vomiting. Intake Vital Signs03/23/18 Height 5 ft 5.5 in 03/23/18 Weight: 103.873 kg Intake Visit Reasons: 1 Y FU Chief Complaint: Routine f/u Placement Director Required: No DME Vendor: [employer] Accompanied by: Self Is patient in pain?: Yes Allergies No Known Allergies Allergy (Verified 03/23/18 11:09) Medications Celecoxib [Celebrex] 100 mg PO BID 07/17/16 [History Confirmed 03/23/18] Cholecalciferol (Vitamin D3) [Vitamin D3] 2,000 unit PO DAILY 07/17/16 [History Confirmed 03/23/18] Hydroxychloroquine [Plaquenil] 200 mg PO BID 07/17/16 [History Confirmed 03/23/18] Levothyroxine [Synthroid] 50 mcg PO DAILY 07/17/16 [History Confirmed 03/23/18] aspirin 81 mg tablet,delayed release 81 mg PO QDAY 02/03/18 [History Confirmed 03/23/18] nitroglycerin 0.4 mg sublingual tablet 0.4 mg SUBLINGUAL Q5- 15M PRN 02/03/18 [History Confirmed 03/23/18] amlodipine 2.5 mg tablet 2.5 mg PO DAILY #90 tab 02/04/18 [Rx Confirmed 03/23/18] lovastatin 40 mg tablet 40 mg PO QPM #90 tab 02/04/18 [Rx Confirmed 03/23/18] metoprolol tartrate 25 mg tablet 12.5 mg PO BID #90 tab 02/04/18 [Rx Confirmed 03/23/18] losartan 25 mg tablet 25 mg PO DAILY #90 tab 03/02/18 [Rx Confirmed 03/23/18] [facility] Medical History Left ventricular hypertrophy (Chronic) CHANELL (obstructive sleep apnea) (Chronic) Hyperlipidemia (Chronic) Hypertension (Chronic) Atherosclerotic heart disease of [place] coronary artery without angina pectoris (Chronic) History of non-ST elevation myocardial infarction (NSTEMI) (Chronic) Coreas's palsy (Acute) Depression (Acute) Hypothyroidism (Acute) Rheumatoid arthritis (Acute) Surgical History Stented coronary artery (Chronic) H/O arthroscopic knee surgery (Acute) H/O tubal ligation (Acute) History of lumpectomy of left breast (Acute) History of right knee joint replacement (Acute) History of tonsillectomy (Acute) Family History Father , age 70 CVA (cerebral vascular accident) Heart disease Mother , Age 86 CVA (cerebral vascular accident) Cancer Bladder Cancer Heart disease Brother CAD (coronary artery disease) Heart disease Sister CAD (coronary artery disease) Pacemaker Asthma Diabetes Heart disease Cancer Social History Smoking Status: Never smoker second hand exposure: No alcohol intake: never substance use type: does not use what type of physical activity do you participate in: none Review of Systems Const CONSTITUTIONAL: Positive fatigue; negative anorexia, body ache, chills, daytime sleepiness, fever(s), night sweats, oral thrush, stops breathing during sleep, weight loss, sleeping in chair, weight loss, weight gain, frequent colds, seasonal allergies, other, headache(s) or orthopnea EETM Ear Nose Throat Mouth: Positive hearing normal; negative hard of hearing, hoarseness, dry mouth in morning, change in vision, itchy eyes, eye pain, swallowing Difficulty, ear pain, nose bleed, headache(s), mouth pain, nasal congestion, nasal discharge, post nasal drip, sinus pain, sinus pressure, sore throat or other Cardio Cardiovascular: Negative chest pain, chest pain at rest, chest pain with activity, irregular heart rhythm, edema, shortness of breath when lying down, palpitations, murmur or other Resp Respiratory: Positive as per HPI and cough cough: Positive productive; negative shortness of breath, pain with cough, wheezing, chest congestion, chest tightness, pain on inspiration, inhalers, increase use of rescue inhalers, snoring, apnea or other Gastro Gastrointestional: Negative bloody stools, change in appetite, difficulty swallowing, reflux, hematemesis, melena stool, loose stool, constipation or other Genitourinary: Positive nocturia; negative blood in urine, pain with urination or other Musc Musculoskeletal: Negative body pain, back pain, neck pain or other Skin/Breast Skin/Breast: Negative dry skin, itching, rash, unusual bruising, breast lump or other Neuro Neurological: Negative restless legs, confusion, weakness or other Psych Psychocological: Negative abnormal sleep pattern, anxiety, thoughts of hurting self/others, hopelessness or other Lymph Lymphatic: Negative easy bleeding, easy bruising, swollen lymph nodes or other Exam Const Constitutional: Positive conversant, cooperative, in no acute respiratory distress, healthy appearing, well developed, well nourished, good hygiene and obese Head Head: Positive normocephalic and atraumatic; negative cyanosis of lips/distal nose, frontal sinus tenderness or maxillary sinus tenderness Eyes Eye: Positive clear conjunctiva; negative nystagmus, scleral abnormality or cataract present Ears Ear: Positive hearing normal and external ears normal; negative hard of hearing Nose Nose: Positive external nose normal, septum normal and no nasal discharge; negative epistaxis or nasal polyp Mouth Mouth: Positive oral mucosae normal, no lesions and good dentition; negative post nasal drip, malodorous breath or oral thrush present Mallampati Score: III: Mallampati Score Neck Neck: Positive normal visual inspection, full ROM, trachea midline and female neck greater than 37 cm (15 in); negative lymphadenopathy or JVD Chest Wall Chest: Positive normal inspection of the chest and symmetric chest movement; negative crepitus or tenderness Resp lung sounds: Positive clear to auscultation, good air exchange, normal expiratory time and normal respiratory effort; negative wheezes, rhonchi, rales, use of accessory muscles, wheeze present on forced exhalation or dullness to percussion Cardio Cardiac: Positive regular rate, regular rhythm, S1 normal and S2 normal; negative murmur, rub, gallop or normal PMI GI GI: Positive normal to inspection, normal bowel sounds and obese; negative distended, ascites or epigastric tenderness Genitourinary: Positive deferred Musc Musculoskeletal: Positive steady gait; negative using an assistive device for ambulation, kyphosis or scoliosis Skin Pulmonary Skin Exam: Positive intact; negative rash, lesion, ulcers, erythema or dermal atrophy Pulses Pulse: Yes radial pulses present Extremities Extremities: Yes capillary refill normal, No clubbing, No cyanosis, No edema, No stasis dermatitis Neuro Neurologic: Yes conversant, Yes no focal neuro deficits, Yes normal concentration, Yes understands questions, Yes cooperative, Yes normal cognition, Yes normal coordination Lymph Lymphatic: No lymphadenopathy Psych Appearance: Positive grossly normal Mental Status: Positive mental status grossly normal Mood: Positive congruent mood Affect: Positive normal affect Coding Level of Care Code Off vis,est,level 3 Diagnoses CHANELL (obstructive sleep apnea) G47.33 03/23/18 1139 <Electronically signed by William Moses MD> Date William Moses MD Cosigner Signature: Date (if applicable) CC: Nicole Tran DO CBC W/DIFF, AUTOMATED Collected: 03/16/2018 Status: F Source: [facility] 12:17 PM [facility] TYPE CODE TESTS RESULT OUT OF RANGE REFERENCE UNITS LAB L100.1000 4.4-11.0 K/mm3 Normal WBC 5.1 LAB L100.1200 4.2-5.4 M/mm3 Normal RBC 4.91 LAB L100.1300 12.0-15.0 g/dl Normal HGB 14.0 LAB L100.1400 37-47 % Normal HCT 43.5 LAB L100.1500 81-99 fL Normal MCV 88.6 LAB L100.1600 27.0-32.0 pg Normal MCH 28.5 LAB L100.1700 32-36 g/gl Normal MCHC 32.2 LAB L100.1810 11.6-14.6 % Normal RDW CV 13.8 LAB L100.1820 35.1-43.9 fl High RDW SD 45.0 LAB L100.1900 150-450 K/mm3 Normal PLT 183 LAB L100.2000 6.2-12.0 fl Normal MPV 12.0 LAB L100.2100 47-70 % Normal NEUT% 57.6 LAB L100.2200 19-41 % Normal LY% 28.1 LAB L100.2300 0-10 % High MONO% 10.2 LAB L100.2400 0-5 % Normal EO% 3.7 LAB L100.2500 0-1 % Normal BASO% 0.4 LAB L100.2550 0.0-0.9 % Normal IM GRAN % 0.000 Result Comment: IG% - Immature Granulocytes (promyelocytes, myelocytes and metamyelocytes) > 1% indicates that a LEFT SHIFT is Present. LAB L100.2620 2.0-7.7 X10 3/uL Normal Absolute Neut 3.0 LAB L100.2720 0.83-4.51 X10 3/ul Normal Absolute Lymph 1.44 Performed By: #### L100.0100 #### [facility] [address] [place], [place], [address] COMPREHENSIVE METABOLIC Collected: 03/16/2018 Status: F Source: [facility] 12:17 PM [facility] REPOSITORY TYPE CODE TESTS RESULT OUT OF RANGE REFERENCE UNITS LAB L501.0100 74-106 mg/dL Normal GLU 103 Result Comment: Fasting Glucose result from 100 to 125 mg/dL suggests IMPAIRED HOMEOSTASIS per A.D.A. criteria. Please note revised GLUCOSE reference range effective 2017. LAB L501.1000 7-18 mg/dL Normal BUN 18 LAB L501.1100 0.55-1.02 mg/dL High CREAT,SERUM 1.14 Result Comment: The validity of the calculated GFR AND GFRAA in patients over 70 years has not been determined. Clinical correlation is essential. LAB L501.1110 >60 mL/min Low EST GFR 50 Result Comment: Non- GFR Calc LAB L501.1115 >60 mL/min Normal EST GFR - AA 60 Result Comment: GFR Calc LAB L501.1300 10-20 RATIO Normal BUN/CRE 15.8 LAB L501.1500 6.4-8.2 g/dL T Normal PROT 8.0 LAB L501.1800 3.2-5.0 g/dL Normal ALB 4.6 LAB L501.1950 2.2-4.2 g/dL Normal GLOB 3.4 LAB L501.2000 0.9-2.4 RATIO Normal A/G 1.4 LAB L501.2200 8.5-10.1 mg/dL CA Normal 9.8 LAB L501.4100 15-37 U/L Normal AST 24 LAB L501.4305 45-117 U/L Normal ALK P 78 LAB L501.4405 13-56 U/L Normal ALT 33 LAB L501.4600 0.20-1.00 mg/dL T Normal BILI 0.60 LAB L501.5300 136-145 mmol/L NA Normal 143 LAB L501.5600 3.5-5.1 mmol/L K Normal 4.9 LAB L501.5900 98-107 mmol/L CL Normal 106 LAB L501.6100 21.0-32.0 mmol/L Normal CO2 27.0 LAB L501.6200 5-15 Normal GAP 10 Performed By: #### L500.4050 #### [facility] [address] [place], [place], [address] CARDIOLOGY VISIT Observed: 02/04/2018 Status: F Source: [facility] REPORT 11:59 AM [facility] REPOSITORY [facility] [address] [place] [address] OFFICE VISIT Date of Service: 02/04/18 MR#: [id number] Acct: [id number] Name: RADHA CESAR I Rep #: [id number] : 1945 Provider: Leon Campbell MD Age/Sex: 72/F Location: [facility] Status: Signed HPI HPI Chief Complaint: Routine f/u Details: RADHA CESAR, is a 72 F who presents to the office today for routine follow-up. Patient is a history of hypertension, hypercholesterolemia, coronary disease status post non-STEMI with drug-eluting stent to the right coronary artery [place] [address] Arzola at [facility]. Patient originally presented in November 2016 for evaluation of preoperative stratification for knee surgery. She underwent a 2D echo with Doppler which showed normal LV function, moderate concentric LVH, unable to quantitate RVSP. She then underwent a debridement echocardiogram which was negative for inducible ischemia. She then underwent a left total knee arthroplasty by Dr. López in November 2016 without complications. On further history she had a history of hypertension, hypercholesterolemia, and denies any chest pain, angina, shortness of breath or dyspnea on exertion. She is taking and tolerating her medicines well. She apparently is going to move to [facility], but will continue to come here for her follow-up appointments. In our office today her blood pressure is 100/60, pulse is 68 and regular. Her physical exam is as below. Her lipids as of 01/28/18 show an LDL of 42 and an HDL of 64. Intake Vital Signs02/04/18 Height 5 ft 5.5 in 02/04/18 Weight: 232 lb 02/04/18 Body Mass Index (BMI) 38.0 02/04/18 Blood Pressure 100/60 Intake Visit Reasons: 6 M Placement Director Required: No Is patient in pain?: No Allergies No Known Allergies Allergy (Verified 02/03/18 18:53) Medications Celecoxib [Celebrex] 100 mg PO BID 07/17/16 [History Confirmed 02/04/18] Cholecalciferol (Vitamin D3) [Vitamin D3] 2,000 unit PO DAILY 07/17/16 [History Confirmed 02/04/18] Hydroxychloroquine [Plaquenil] 200 mg PO BID 07/17/16 [History Confirmed 02/04/18] Levothyroxine [Synthroid] 50 mcg PO DAILY 07/17/16 [History Confirmed 02/04/18] aspirin 81 mg tablet,delayed release 81 mg PO QDAY 02/03/18 [History Confirmed 02/04/18] nitroglycerin 0.4 mg sublingual tablet 0.4 mg SUBLINGUAL Q5- 15M PRN 02/03/18 [History Confirmed 02/04/18] amlodipine 2.5 mg tablet 2.5 mg PO DAILY #90 tab 02/04/18 [Rx Confirmed 02/04/18] losartan 25 mg tablet 25 mg PO DAILY #90 tab 02/04/18 [Rx Confirmed 02/04/18] lovastatin 40 mg tablet 40 mg PO QPM #90 tab 02/04/18 [Rx Confirmed 02/04/18] metoprolol tartrate 25 mg tablet 12.5 mg PO BID #90 tab 02/04/18 [Rx Confirmed 02/04/18] PF[facility] Medical History Left ventricular hypertrophy (Chronic) CHANELL (obstructive sleep apnea) (Chronic) Hyperlipidemia (Chronic) Hypertension (Chronic) Atherosclerotic heart disease of [place] coronary artery without angina pectoris (Chronic) History of non-ST elevation myocardial infarction (NSTEMI) (Chronic) Surgical History Stented coronary artery (Chronic) Family History Father , age 70 CVA (cerebral vascular accident) Mother , Age 86 CVA (cerebral vascular accident) Cancer Bladder Cancer Brother CAD (coronary artery disease) Sister CAD (coronary artery disease) Pacemaker Social History Smoking Status: Never smoker ROS Const Const: Negative for weakness, body ache, fever(s), chills, frequent falls, night sweats, daytime sleepiness, difficulty sleeping, weight gain, weight loss, increased appetite, poor appetite, anorexia, other, fatigue, excessive sweating or headache(s) Eyes Eyes: Negative for blind spots, loss of peripheral vision, transient loss of vision, blurry vision, change in vision, double vision, floaters, tunnel vision or other ENT ENT: Negative for headache(s), dizziness, hearing loss, tinnitus, Nosebleed/epistaxis, post nasal drip, lip swelling, tongue swelling, bleeding gums, hoarseness, neck pain, dry mouth, other or balance problems Cardio Chest Pain: No Resp Respiratory: Negative for SOB with activity, SOB at rest, SOB orthopnea\SOB lying down, Coughing up blood/hemoptysis, chest congestion, pain on inspiration, snoring, stridor, wheezing, crackles, paroxysmal nocturnal dyspnea or other GI GI: Negative nausea, vomiting, heartburn, constipation, belching, bloating, cramping, vomiting blood/hematemesis, bright, red blood in stools, black,tarry stools, loose stools, Difficulty Swallowing or other : Negative for hematuria, frequent nighttime urination/ nocturia, erectile dysfunction or abnormal vaginal bleeding Musc Musc: Negative for balance problems, muscle aches/ myalgia, muscle weakness or joint pain Skin Skin: Negative redness, non-healing lesions, rash, unusual bruising, skin ulcer, wounds, jaundice or other Neuro Neuro: Negative for lightheadedness, near syncope, syncope, orthostatic symptoms, confusion, memory loss, restless legs, vertigo, seizures, lack of coordination, other, weakness, frequent falls, blurry vision, double vision, headache(s) or dizziness Epi Hematologic/Lymphatic: Negative for easy bleeding, easy bruising, enlarged lymph nodes or other Endo Endo: Negative for fatigue, excessive sweating, cold intolerance, heat intolerance, flushing, increased thirst/drinking, increased hunger, hair loss, hair growth or other Psych Psych: Negative for anxiety, depression, thoughts of harming anyone, thoughts of harming yourself, visual hallucinations, panic attacks or audible hallucinations Allergy Allergy/Immunology: Negative for throat swelling, Negative for hives, Negative for lip swelling, Negative for tongue swelling, Negative for rash Cardiology Exam Const Appearance: cooperative, healthy appearing and no acute distress Nutritional Appearance: well nourished Orientation: alert, oriented x3 and oriented to person Head Head: normal to inspection, atraumatic and normocephalic Nose: external nose normal Face and Sinus: face symmetric Mouth: oral mucosae normal Eyes General: appearance normal, both eyes and all related structures Eyelids: eyelids normal Conjunctivae: conjunctivae normal Pupils: PERRL and normal by confrontation EOM: EOM intact bilaterally Neck Neck: normal visual inspection and full ROM Carotids: normal carotid upstroke Chest Chest inspection: normal inspection of the chest Auscultation: Bilateral: Clear to Auscultation Cardio Palpation: normal PMI Rate: regular rate Rhythm: regular rhythm Heart sounds: S1 normal and S2 normal GI GI: normal to inspection, no hepatosplenomegaly and bowel sounds present Neuro General: alert, oriented x3, awake, CN's II-XI intact bilaterally and moves all extremities Skin Skin: no rashes or lesions noted Extremities Pulses: Normal: Right Femoral Pulse, Left Femoral Pulse, Right Dorsalis Pedis Pulse, Left Dorsalis Pedis Pulse, Right Posterior Tibial Pulse, Left Posterior Tibial Pulse, Right Radial Pulse, Left Radial Pulse Lower Extremity Edema: None: Bilateral Psych Psychological: normal affect Assessment AND Plan 1. Atherosclerotic heart disease of [place] coronary artery without angina pectoris I25.10 RYAN to mid RCA (Promus 3.0 X 15mm) per Dr. Pablo Arzola, [facility] Plan 1. Coronary artery disease: The patient is asymptomatic from a cardiac standpoint. She denies any chest pain, angina, shortness of breath or dyspnea on exertion. Her recent stress test in preparation for knee surgery was negative. Her blood pressure and heart rate are well-controlled. Recommend the patient continue her current medications of baby aspirin, losartan, and Lopressor. I strongly encouraged her to increase her exercise capacity 2. Hyperlipidemia E78.5 Plan 2. Hyperlipidemia: Her LDL and HDL cholesterol are at goal. Continue lovastatin. 3. Return office in 6 months. This note was generated using a voice recognition system and there may be incorrect words, spelling or punctuation that were not noted when reviewing the office note prior to saving. Plan Detail Other Medications New: Refilled: Discontinued: oxycodone-acetaminophen 5-325 mg Discontinued1 - 2 tabs PO Q6H PRN PRN Pain Shwetha Erica Guajardo Reason: Pt no longer taking Follow Up +6M (Adrian) Coding Level of Care Code Off vis,est,level 3 Diagnoses Atherosclerotic heart disease of [place] coronary artery without angina pectoris I25.10 Hyperlipidemia E78.5 Coding Level of Care Code Off vis,est,level 3 Diagnoses Atherosclerotic heart disease of [place] coronary artery without angina pectoris I25.10 Hyperlipidemia E78.5 02/04/18 1159 <Electronically signed by Leon Campbell MD> Date Leon Campbell MD Cosigner Signature: Date (if applicable) CC: Nicole Tran DO LIVER PROFILE Collected: 01/28/2018 Status: F Source: [place] 8:46 AM [facility] REPOSITORY Order Comment: Order Date: 05/13/17 Order Info: [id number] - *Hepatic Function Panel Order Info: [id number] - *Lipid Profile CC PCP Comments: 12 hours fasting, may have water. TYPE CODE TESTS RESULT OUT OF RANGE REFERENCE UNITS LAB L501.1500 6.4-8.2 g/dL Normal T PROT 8.0 LAB L501.1800 3.2-5.0 g/dL Normal ALB 4.3 LAB L501.1950 2.2-4.2 g/dL Normal GLOB 3.7 LAB L501.4100 15-37 U/L Normal AST 20 LAB L501.4305 45-117 U/L Normal ALK P 79 LAB L501.4405 13-56 U/L Normal ALT 30 LAB L501.4600 0.20-1.00 mg/dL Normal T BILI 0.60 LAB L501.4700 0.00-0.30 mg/dL Normal D BILI 0.14 Performed By: #### L500.3400 #### [facility] [address] [place], [place], [id number] LIPID PROFILE Collected: 01/28/2018 Status: F Source: [place] 8:46 AM [facility] REPOSITORY Order Comment: Order Date: 05/13/17 Order Info: [id number] - *Hepatic Function Panel Order Info: [id number] - *Lipid Profile CC PCP Comments: 12 hours fasting, may have water. TYPE CODE TESTS RESULT OUT OF RANGE REFERENCE UNITS LAB L501.4900 200 mg/dL Normal CHOL 148 Result Comment: <200 mg/dL Desirable 200-240 mg/dL Borderline >240 mg/dL High Risk LAB L501.5000 mg/dL High TRIG 209 Result Comment: The drugs N-Acetylcysteine and Metamizole may falsely depress this assay. Serum Triglycerides Reference Interval Normal <150 mg/dL Borderline high 150 - 199 mg/dL High 200 - 499 mg/dL Very High > or = 500 mg/dL LAB L501.6400 mg/dL Normal HDL 64 Result Comment: The drugs N-Acetylcysteine and Metamizole may falsely depress this assay. Reference Range HDL <40 mg/dL Low HDL Cholesterol HDL >or= 60 mg/dL High HDL Cholesterol LAB L501.6500 0-130 mg/dL Normal LDL 42 LAB L501.6600 5-40 mg/dL High VLDL 42 Performed By: #### L500.4100 #### [facility] [place], [address] CBC W/DIFF, AUTOMATED Collected: 09/15/2017 Status: F Source: [place] 1:13 PM [facility] REPOSITORY TYPE CODE TESTS RESULT OUT OF RANGE REFERENCE UNITS LAB L100.1000 4.4-11.0 K/mm3 Normal WBC 4.6 LAB L100.1200 4.2-5.4 M/mm3 Normal RBC 4.83 LAB L100.1300 12.0-15.0 g/dl Normal HGB 13.8 LAB L100.1400 37-47 % Normal HCT 42.8 LAB L100.1500 81-99 fL Normal MCV 88.6 LAB L100.1600 27.0-32.0 pg Normal MCH 28.6 LAB L100.1700 32-36 g/gl Normal MCHC 32.2 LAB L100.1810 11.6-14.6 % Normal RDW CV 13.4 LAB L100.1820 35.1-43.9 fl Normal RDW SD 43.3 LAB L100.1900 150-450 K/mm3 Normal PLT 187 LAB L100.2000 6.2-12.0 fl Normal MPV 11.4 LAB L100.2100 47-70 % Normal NEUT% 56.3 LAB L100.2200 19-41 % Normal LY% 26.9 LAB L100.2300 0-10 % High MONO% 12.7 LAB L100.2400 0-5 % Normal EO% 3.7 LAB L100.2500 0-1 % Normal BASO% 0.2 LAB L100.2550 0.0-0.9 % Normal IM GRAN % 0.200 Result Comment: IG% - Immature Granulocytes (promyelocytes, myelocytes and metamyelocytes) > 1% indicates that a LEFT SHIFT is Present. LAB L100.2620 2.0-7.7 X10 3/uL Normal Absolute Neut 2.6 LAB L100.2720 0.83-4.51 X10 3/ul Normal Absolute Lymph 1.25 Performed By: #### L100.0100 #### [facility] [address] [place], [address] COMPREHENSIVE METABOLIC Collected: 09/15/2017 Status: F Source: [place] 1:13 PM [facility] REPOSITORY TYPE CODE TESTS RESULT OUT OF RANGE REFERENCE UNITS LAB L501.0100 74-106 mg/dL Normal GLU 100 Result Comment: Fasting Glucose result from 100 to 125 mg/dL suggests IMPAIRED HOMEOSTASIS per A.D.A. criteria. Please note revised GLUCOSE reference range effective 2017. LAB L501.1000 7-18 mg/dL Normal BUN 16 LAB L501.1100 0.55-1.02 mg/dL High CREAT,SERUM 1.06 Result Comment: The validity of the calculated GFR AND GFRAA in patients over 70 years has not been determined. Clinical correlation is essential. LAB L501.1110 >60 mL/min Low EST GFR 54 Result Comment: Non- GFR Calc LAB L501.1115 >60 mL/min Normal EST GFR - AA 66 Result Comment: GFR Calc LAB L501.1300 10-20 RATIO Normal BUN/CRE 15.1 LAB L501.1500 6.4-8.2 g/dL T Normal PROT 7.6 LAB L501.1800 3.2-5.0 g/dL Normal ALB 4.2 LAB L501.1950 2.2-4.2 g/dL Normal GLOB 3.4 LAB L501.2000 0.9-2.4 RATIO Normal A/G 1.2 LAB L501.2200 8.5-10.1 mg/dL CA Normal 9.1 LAB L501.4100 15-37 U/L Normal AST 22 LAB L501.4305 45-117 U/L Normal ALK P 88 LAB L501.4405 13-56 U/L Normal ALT 29 Result Comment: Please note revised ALT reference range effective 2017. LAB L501.4600 0.20-1.00 mg/dL Normal T BILI 0.50 LAB L501.5300 136-145 mmol/L Normal NA 141 LAB L501.5600 3.5-5.1 mmol/L Normal K 4.5 LAB L501.5900 98-107 mmol/L Normal CL 107 LAB L501.6100 21.0-32.0 mmol/L Normal CO2 28.0 LAB L501.6200 5-15 Normal GAP 6 Performed By: #### L500.4050 #### [facility] [address] [place], [address] ALLERGIES ALLERGIES DATE TYPE / CODE NAME / CODE REACTION SEVERITY SOURCE 07/18/2018 Drug No Known Unknown [facility] Allergy/4160 Allergies/F00 Hospital 26973(SNOMED [id number](RXNOR Repository CT) M) ENCOUNTERS ENCOUNTERS ADMIT/DISCHARGE ACCOUNT ADMITTING ENCOUNTER LOCATION SOURCE NUMBER CLASS 07/27/2018 [id number] [place]ulatory [place] ing:[facility] Repository 07/18/2018/ [id number] Ambulatory BMSBuilding:B [place] 9 5 [facility] Repository 07/13/2018 [id number] Ambulatory [place] ing:MTLAB Repository 03/23/2018/ [id number] Ambulatory BMSBuilding:B [place] 8 6 [place].[facility] Repository 03/16/2018 [id number] Ambulatory [place] ing:MTLAB Repository 03/16/2018 [id number] Ambulatory BMS [place] Repository 02/04/2018/ [id number] Ambulatory BMSBuilding:B [place] 8 5 [facility] Repository 02/03/2018 [id number] Ambulatory BMSBuilding:B [place] 3 [facility] Repository 01/28/2018 [id number] Ambulatory [place] 6 [facility] ing:MTLAB Repository 12/17/2017 [id number] Ambulatory BMSBuilding:B [place] 0 [facility] Repository 09/15/2017 [id number] Ambulatory [place] 3 [facility] ing:[facility] Repository PAYERS PAYERS ENCOUNTER GUARANTOR PAYER SUBSCRIBER SOURCE 07/27/2018 RADHA CESAR Primary RADHA CESAR [place] [id number] Insurance:MEDICARE IDOB: [place], [place] PART A [place] [id number] Hospital [address]Cex: (330) Number: Repository [phone] () [id number] Date:2018-07-18 07/27/2018 Secondary RADHA Trevino Insurance:MUTUAL OF IDOB: [facility] Number: [id number] Hospital [id number] Repository Date:5433-66-67YQEHPL [place], [place] [address]CY: 07/27/2018 Tertiary NOT GIVENUNK [place] Insurance:SELF PAY [facility] Number: Effective Repository Date:2018-07-18 07/18/2018 RADHA CESAR Primary RADHA [place] [id number] Insurance:MEDICARE [facility] [place] [facility] [id number] Hospital 14651Nxx: (330) Number: Repository [phone] () [id number] Date:2018-02-04 07/18/2018 Secondary RADHA CESAR [place] Insurance:MUTUAL OF IDOB: [facility] Number: [id number] Hospital [id number] Repository Date:4397-03-55MCXCMZ [place], [place] [address]CW: 07/18/2018 Tertiary NOT GIVENUNK [place] Insurance:SELF PAY [facility] Number: Effective Repository Date:2018-02-04 07/13/2018 RADHA CESAR Primary RADHA Trevino [id number] Insurance:MEDICARE IDOB[facility] [place] [facility] [id number] Hospital [address]Qkn: (330) Number: Repository [phone] () [id number] Date:2018-07-13 07/13/2018 Secondary RADHA Trevino Insurance:MUTUAL OF IDOB: [facility] Number: [id number] Hospital [id number] Repository Date:9406-74[place], [place] [address]EZ: 07/13/2018 Tertiary NOT GIVENUNK [place] Insurance:SELF PAY [facility] Number: Effective Repository Date:2018-07-13 03/23/2018 RADHA CESAR Primary RADHA Trevino [id number] Insurance[place] [facility] [id number] Hospital 223[address]Jfb: (330) Number: Repository [phone] () [id number] Date:2017-12-21 03/23/2018 Secondary RADHA CESAR [place] Insurance:MUTUAL OF IDOB: [facility] Number: [id number] Hospital [id number] Repository Date:4222-77-36QOCEXI OF [place], [place] [address]PV: 03/23/2018 Tertiary NOT GIVENUNK [place] Insurance:SELF PAY [facility] Number: Effective Repository Date:2018-03-16 03/16/2018 RADHA CESAR Primary RADHA Trevino [id number] Insurance:MEDICARE [place]OB[place] [facility] [id number] Hospital 83[address]Rws: (330) Number: Repository [phone] () [id number] Date:2018-03-16 03/16/2018 Secondary RADHA Trevino Insurance:MUTUAL OF IDOB: [facility] Number: [id number] Hospital [id number] Repository Date:9612-89-14XGWHKZ OF [place], [place] [address]BO: 03/16/2018 Tertiary NOT GIVENUNK [place] Insurance:SELF PAY [facility] Number: Effective Repository Date:2018-03-16 03/16/2018 RADHA CESAR Primary RADHA Trevino [id number] Insurance:MEDICARE [place]OB[place] [facility] [id number] Hospital 47[address]Ogl: (330) Number: Repository [phone] () [id number] Date:2018-03-16 03/16/2018 Secondary RADHA CESAR [place] Insurance:MUTUAL OF IDOB: [facility] Number: [id number] Hospital [id number] 92Effective Repository Date:2889-99-96GOFBQV OF [place], [place] [address]BU: 03/16/2018 Tertiary NOT GIVENUNK [place] Insurance:SELF PAY [facility] Number: Effective Repository Date:2018-03-16 02/04/2018 RADHA CESAR Primary RADHA Trev[place] [id number] [place] Insurance:MEDICARE IDOB: Community [place] PART A [facility] [id number] Number: Repository [id number]: [phone] [id number] [phone] () Date:2018-01-03 02/04/2018 Secondary RADHA Trevino Insurance:MUTUAL OF IDOB: [facility] Number: [id number] Hospital [id number] 92Effective Repository Date:1918-88-53FWITWJ OF [place], [place] [address]UK: 02/04/2018 Tertiary NOT GIVENUNK [place] Insurance:SELF PAY [facility] Number: Effective Repository Date:2018-02-04 02/03/2018 Radha Cesar Primary Radha Trevino [id number] [place] Insurance:MEDICARE IDOB: Community [employer] PART A [facility] [id number] Number: Repository [id number]: [phone] [id number] [phone] () Date:2018-02-03 02/03/2018 Secondary Radha Trevino Insurance:MUTUAL OF IDOB: [facility] Number: [id number] Hospital [id number] 92Effective Repository Date:5979-97-34TEIMMF OF [place], [place] [address]OT: 02/03/2018 Tertiary NOT GIV[place]UNK [place] Insurance:SELF PAY [facility] Number: Effective Repository Date:2018-02-03 01/28/2018 Radha Cesar Primary Radha [place] [id number] [place] Insurance:MEDICARE IDOB: Community [employer] PART A [facility] [id number] [place] Number: Repository [id number]: 330 [id number] [phone] () Date:2018-01-28 01/28/2018 Secondary Radha Cesar [place] Insurance:MUTUAL OF IDOB: [facility] Number: [id number] Hospital [id number] 92Effective Repository Date:8824-35-80GRQNWP OF [place], [place] [address]KW: 01/28/2018 Tertiary NOT GIVENUNK [place] Insurance:SELF PAY [facility] Number: Effective Repository Date:2018-01-28 12/17/2017 Radha Cesar Primary Radha [id number] [place] Insurance:MEDICARE IDOB: Community [employer] PART A [facility] [id number] [place] Number: Repository [id number]: 330 [id number] [phone] () Date:2017-06-22 12/17/2017 Secondary Radha Cesar [place] Insurance:MUTUAL OF IDOB: [facility] Number: [id number] Hospital [id number] Repository Date:1738-77-14QBHTVD OF [place] [address]XH: 12/17/2017 Tertiary NOT GIVENUNK [place] Insurance:SELF PAY [facility] Number: Effective Repository Date:2017-06-22 09/15/2017 Radha Cesar Primary Radha Trevino [id number] [place] Insurance:MEDICARE IDOB: Community [employer] PART A [facility] [id number], [place] Number: Repository [id number]: 330 [id number] [phone] () Date:2017-09-15 09/15/2017 Secondary Radha Cesar [place] Insurance:MUTUAL OF IDOB: [facility] Number: [id number] Hospital [id number] Repository Date:5121-47-16YPGKDN OF [place], [place] [address]DH: 09/15/2017 Tertiary NOT GIVENUNK [place] Insurance:SELF PAY [facility]: Effective Repository Date:2017-09-15
== END ==
PROVIDERS: Family Provider Family Medicine; PCP Family Medicine; Referring Provider Internal Medicine Cardiovascular Disease; Visit Provider Internal Medicine Cardiovascular Disease
DX: R07.9 Chest pain, unspecified (principal); I25.10 Atherosclerotic heart disease of native coronary artery without angina pectoris; I25.2 Old myocardial infarction; Z95.5 Presence of coronary angioplasty implant and graft
CPT/HCPCS: 93017; 93350; J7040; A4216

== ENCOUNTER → 2018-12-06 15:10 | Outpatient (CLI) | payer MEDICARE, OTHER, SELFPAY ==
[2018-12-06 14:07] VITALS: BMI 38.2
--- NOTE | 2018-12-06 15:20 | RAD_ITS ---
STUDY: X-RAY CHEST REASON FOR EXAM: Female, 73 years old. Chest pain. TECHNIQUE: PA and lateral views of the chest. COMPARISON: None. FINDINGS: The lungs are clear. The left lung is borderline hyper expanded with some flattening of the diaphragm. There is no demonstrated pleural abnormality. Normal size heart. Normal mediastinum and natalia. Normal visualized pulmonary arteries. There is minor atherosclerotic calcification of the aortic arch. There are diffuse degenerative changes of the visualized thoracic spine. Normal visualized ribs, clavicles, and shoulders. There is no demonstrated abnormality of the visualized soft tissue structures of the upper abdomen. RAD/Chest PA and Lateral IMPRESSION: No acute cardiopulmonary disease. Electronically Signed: Moise Hayward MD at 16:32 EDT , Service support ,
== END ==
PROVIDERS: Family Provider Family Medicine; PCP Family Medicine; Referring Provider Internal Medicine Cardiovascular Disease; Visit Provider Internal Medicine Cardiovascular Disease
DX: R07.9 Chest pain, unspecified (principal)
CPT/HCPCS: 71046

== ENCOUNTER 2018-12-16 06:21 | Day surgery (SDC) | payer MEDICARE, OTHER, SELFPAY ==
[2018-12-06 14:07] VITALS: BMI 38.2
[2018-12-06 16:31] LABS: Hematocrit 42.3 % (37-47); Hemoglobin 14.1 g/dl (12.0-15.0); Mean Corp Hgb Conc 33.3 g/gl (32-36); Mean Corpuscular Hgb 29.1 pg (27.0-32.0); Mean Corpuscular Volume 87.2 fL (81-99); Mean Platelet Vol. 11.6 fl (6.2-12.0); Platelet Count 178 K/mm3 (150-450); RBC Distribution Width CV 13.5 % (11.6-14.6); Red Blood Count 4.85 M/mm3 (4.2-5.4); White Blood Count 6.2 K/mm3 (4.4-11.0)
[2018-12-06 16:33] LABS: Scan Indicated on CBC? Y/N NO
[2018-12-06 16:34] LABS: Anion Gap 4 (5-15); BUN 18 mg/dL (7-18); BUN/Creat Ratio 14.9 RATIO (10-20); Calcium,Total 9.5 mg/dL (8.5-10.1); Chloride 106 mmol/L (98-107); Creatinine, Serum 1.21 mg/dL (0.55-1.02); EST Glomerular Filtration Rate 46 mL/min (>60); Est Glom Filt Rate - Afr Amer 56 mL/min (>60); Glucose 102 mg/dL (74-106); Potassium 4.6 mmol/L (3.5-5.1); Sodium Level 140 mmol/L (136-145)
[2018-12-06 16:49] LABS: Partial Thromboplast Time 26.5 Seconds (24.1-36.2); Prothrombin Time (Protime)PT. 12.6 SECONDS (11.7-14.9)
[2018-12-14 09:14] VITALS: BMI 38.7
[2018-12-16] VITALS (30 sets, daily range): BP systolic 102–173; BP diastolic 47–84; PULSE 70–97; RESP 11–20; TEMP 36.3–36.8; O2SAT 93–99; BMI 38.5; BMI 38.4
[2018-12-16 09:31] LABS: ACT Activated Clotting Time 219 sec (74-137)
--- NOTE | 2018-12-16 09:42 | CL.I_ITS ---
Patient Name: JOVANNA CESAR I Study Date: 12/16/2018 Performing: Leon Campbell MD Ht: 64.96 inches 165 cm : 1945 Wt: 233.69 lbs 106 kg Age: 73 Gender: female BSA: 2.11 Amended PROCEDURE(S) PERFORMED [id number]/COR/LV [id number] W OR WO PTCA, SINGLE CORONARY ARTERY CLINICAL PROFILE AND CO-MORBIDITIES Indications: New Onset Angina <= 2 months, Stable Known CAD Heart Failure: None Stress/Imaging Stress Echocardiogram: Yes Result: Negative Stress Echocardiogram: Negative Angina Classification Anginal Classification w/in 2 Weeks: CCS II CAD Presentations: Unstable angina. Comorbidities/Risk Factors: Hypertension Dyslipidemia Prior PCI Diabetes Mellitus: Diabetes Therapy: Oral CONCLUSIONS Single vessel CAD of the proximal RCA Non obstructive coronary arteries Normal LV size, wall motion,and systolic function Elevated Left Ventricular End Diastolic Pressure Successful PTCA/RYAN proximal RCA with a 3.0 x 32 Promus Synergy stent, post dilated throughout with a 3.5 x 12 NC Balloon; 85%-->0%, no dissection. Pt had identical chest pain symptoms during balloon and stent inflation. RECOMMENDATIONS Referred for immediate PCI Highly recommend quitting all tobacco products Follow up with primary line inspector Risk factor modification ASA Indefinitley Plavix for at least 12 months Routine post interventional care Refer for Outpatient Cardiac Rehab Manual sheath removal per protocol Follow up with Dr. Campbell Manual sheath removal as access too close to profunda artery. If pt's symtpoms resolve, will hold off on PCI to proximal LAD; if pt has ongoing syptoms will returi n for elective PCI of LAD in 3-4 weeks. DESCRIPTION OF PROCEDURE The patient arrived to the procedure lab. The risks and benefits of the procedure as well as a full d escription of our services here and lack of surgical backup were fully explained to the patient and/o r their significant other prior to the catheterization. The Timeout was completed, verifying the talat ect patient and procedure. The patient's procedural site was prepped and draped in the usual fashion. Local anesthetic was given subcutaneously to right groin region with Lidocaine 2%. Using a modified Seldinger technique, arterial access was obtained via the right femoral artery, a 4Fr sheath was inse rted. Left Coronary Artery selective angiography was performed in multiple views using a 4 Fr. JL5 c atheter. Right Coronary Artery selective angiography was then performed in multiple views using a 4 F r. 3DRC catheter. Left Ventriculography was performed in LOPEZ projection using a 4 Fr. Pigtail cathete r. LV to AO pullback pressures were then recordedThe images were reviewed and options discussed. A decision was then made to proceed with an Intervention, IVUS or other adjunct procedure. Arterial sheath was exchanged for a 6 Fr Sheath. HS II Guide catheter was inserted and engaged in to the RCA. BMW Guide wire was advanced to the RCA. Angiogram performed pre balloon dilatation. 2.0 x 12 Emerge Balloon catheter was advanced across lesion in the right coronary, proximal. PTCA balloon inflated at 12 atms for 25 secs. PTCA balloon inflated at 8 atms for 15 secs. PTCA balloon inflated a t 6 atms for 10 secs. 3.0 x 32 Synergy Drug Eluting stent was advanced across the lesion in the right coronary, proximal. 3.5 x 12 NC Emerge Balloon catheter was inserted post stent. PTCA balloon inflat ed at 12 atms for 15 secs. PTCA balloon inflated at 12 atms for 14 secs. PTCA balloon inflated at 12 atms for 10 secs. PTCA balloon inflated at 12 atms for 15 secs. PTCA balloon inflated at 12 atms for 12 secs. PTCA balloon inflated at 15 atms for 15 secs. Angiogram performed post balloon dilatation. C ontrast was injected through the sheath and the Right Iliac and Femoral artery were assessed for possible closure device. The arterial sheath was sutured in place and capped CORONARY ANGIOGRAPHY DOMINANCE: Right Dominant LEFT HEART ASSESSMENT Left Ventricular Ejection Fraction: by LV Gram 65 % Normal Left Ventricular systolic function Normal LV wall motion LEFT MAIN: Angiographically normal LEFT ANTERIOR DESCENDING ARTERY: PROX LAD: 60 % Stenosis DIAGONAL 1: Proximal - Previously placed stent is patent CIRCUMFLEX ARTERY: Mild luminal irregularities less than 30% RIGHT CORONARY ARTERY: PROX RCA: 85 % Stenosis MID RCA: Previously placed stent is patent INTERVENTION INFORMATION LESION SITE: RCA (Proximal) Lesion Complexity: High/C, lesion at bifurcation: No, thrombus present: No, lesion length: 32 mm, cul prit lesion: Yes Pre Stenosis: 85 % Pre intervention DASHAWN flow: 3 PROCEDURE: Drug Eluting Stent with pre and post dilatation Post Stenosis: 0 % Post intervention DASHAWN flow: 3 Lesion Devices: Heatmapstronic 6 Fr HSII 100cm Guide Catheter Morris .014 [employer] [place] Straight 190cm Jose J Sci EMERGE MR 2.00x12 BALLOON Jose J Sci Synergy MR RYAN 3.00x32 Jose J Sci NC EMERGE MR 3.50x12 BALLOON COMPLICATIONS No Complications PROCEDURE MEDICATIONS Versed 1 mg IV Oxygen: 2 L/min via nasal cannula Heparin 6000 unit(s) IV 12/16/2018 09:03:45 Nitro 200 mcg IC 12/16/2018 09:05:28 Nitro 200 mcg IC 12/16/2018 09:05:28 SUMMARY OF HEMODYNAMIC DATA Time AIR REST ECG 07:07:23 AO 163/78 (113) SA 08:54:36 LV 163/-18, 21 09:01:42 LVp 160/-19, 20 09:01:47 AOp 144/61 (97) 09:01:52 AO 113/61 (85) 09:18:34 Signed By Leon Campbell MD On 12/16/2018 09:41:06 Leon Campbell MD
--- NOTE | 2018-12-16 10:03 | EKG12_ITS ---
Test Reason : POST PCI Blood Pressure : / mmHG Vent. Rate : 074 BPM Atrial Rate : 074 BPM P-R Int : 204 ms QRS Dur : 090 ms QT Int : 428 ms P-R-T Axes : 054 -37 034 degrees QTc Int : 475 ms Normal sinus rhythm Left axis deviation Low Voltage QRS (Limb Leads) R/S >1.0 in V1, Consider Lead Placement, Early Transition, Normal Variant, Or Posterior AK, Age Undet ermined Abnormal ECG Confirmed by DENA MAY, ALICIA ([id number]), order editor HODAN WHELAN ([id number]) on 12/21/2018 11:46:17 AM Referred By: Leon Campbell Confirmed By:ALICIA FERNANDES MD
[2018-12-16] MEDS: 0.9% Normal Saline 1,000 ML 150 ML IV (10:50)
[2018-12-16 11:45] LABS: ACT Activated Clotting Time 136 sec (74-137)
--- NOTE | 2018-12-16 13:43 | CRPHASE1 ---
Patient Communication Former Patient:: Phase I PHII Cardiac Rehab Discussed with Patient:: Yes Guide to Cardiac Rehab Given to Patient:: Yes Cardiac Rehab Facility Choice List Given to Patient:: Yes - Radha may go to [facility] or [facility] Choice Program [facility] CR PHII:: Communication Given to CR - Radha may go to [facility] or [place] CR , Refer to [facility] Choice Program Other:: Communication Given to CR, With permission faxed order and referral information Patrol Community Service Officer:: Leon Campbell Refer Phase II Cardiac Rehab:: Yes Sessions:: 36 sessions - 3 days/wk, 12 weeks Risk Factors/Lifestyle Smoking Status: Never smoker Hx Hypertension: Yes Hx Metabolic Disorders: Yes - Hypothyroidism Hx Obesity: Yes Height: 5 ft 5 in Weight:: 231 lb BMI: 38.4 Post-Menopausal: Yes Stress: Long-standing, Home/Family ETOH: No Substance Abuse: No Risk Factor for Sedentary Lifestyle: Highest Risk Family History: Family History (Last Reviewed 12/06/18 @ 14:07 by Shwetha Guajardo) Father CVA (cerebral vascular accident) Heart disease Mother CVA (cerebral vascular accident) Cancer Heart disease Brother CAD (coronary artery disease) Heart disease Sister CAD (coronary artery disease) Pacemaker Asthma Diabetes Heart disease Cancer Family History: Asthma, Cancer, Diabetes, Stroke Past Cardiac Illness: Coronary Artery Disease, Previous PCI w/Stent Phase I Education Given On:: [place], Nutrition, Antiplatelet medication, CHF Issues Affecting Care:: None Knowledge of Condition:: Yes Learning Preferences: Verbal, Written, Audio/Visual, Demonstration Medical/Surgical History ND:: Yes - NSTEMI 2008 CAD:: Yes CHANELL:: Yes Hypertension:: Yes Dyslipidemia:: Yes Arthritis:: Yes Thyroid:: Yes Depression:: Yes Other Medical/Surgical Issues:: Hx [place] Palsy PTCA:: Yes - 2008 Orthopedic:: Yes - 2016 Left total knee. Discharge/Home/Social Eval Patient Lives With:: Radha lives in [place], but will be moving to [place] in January or February. Cardiac Rehabilitation Info Cardiac Rehabilitation Program Information: Cardiac Rehabilitation is important for patients like you who are recovering from a heart problem. Cardiac rehabilitation programs are recognized as integral to the continued care of the patient with coronary heart disease. The cardiac rehabilitation program is designed to optimize a patient's physical, psychological, and social functioning. Health hourly caregiver work in cardiac rehabilitation programs and assist you with getting the treatments you need to get stronger and healthier - like exercise, healthy eating habits, and medications. Cardiac rehabilitation has been show to help people with heart problems live longer and have better life enjoyment than people who do not go to cardiac rehabilitation. Please contact the Cardiac Rehabilitation Program at [facility] at in two weeks if you have not heard from them.
--- NOTE | 2018-12-16 13:48 | CRPHASE1_ITS ---
Patient Communication Former Patient:: Phase I PHII Cardiac Rehab Discussed with Patient:: Yes Guide to Cardiac Rehab Given to Patient:: Yes Cardiac Rehab Facility Choice List Given to Patient:: Yes - Radha may go to [facility] or [facility] Choice Program [facility] CR PHII:: Communication Given to CR - Radha may go to [facility] or [place] CR , Refer to [facility] Choice Program Other:: Communication Given to CR, With permission faxed order and referral information Equipment Detailer:: Leon Campbell Refer Phase II Cardiac Rehab:: Yes Sessions:: 36 sessions - 3 days/wk, 12 weeks Risk Factors/Lifestyle Smoking Status: Never smoker Hx Hypertension: Yes Hx Metabolic Disorders: Yes - Hypothyroidism Hx Obesity: Yes Height: 5 ft 5 in Weight:: 231 lb BMI: 38.4 Post-Menopausal: Yes Stress: Long-standing, Home/Family ETOH: No Substance Abuse: No Risk Factor for Sedentary Lifestyle: Highest Risk Family History: Family History (Last Reviewed 12/06/18 @ 14:07 by Shwetha Guajardo) Father CVA (cerebral vascular accident) Heart disease Mother CVA (cerebral vascular accident) Cancer Heart disease Brother CAD (coronary artery disease) Heart disease Sister CAD (coronary artery disease) Pacemaker Asthma Diabetes Heart disease Cancer Family History: Asthma, Cancer, Diabetes, Stroke Past Cardiac Illness: Coronary Artery Disease, Previous PCI w/Stent Phase I Education Given On:: [place], Nutrition, Antiplatelet medication, CHF Issues Affecting Care:: None Knowledge of Condition:: Yes Learning Preferences: Verbal, Written, Audio/Visual, Demonstration Medical/Surgical History ID:: Yes - NSTEMI 2008 CAD:: Yes CHANELL:: Yes Hypertension:: Yes Dyslipidemia:: Yes Arthritis:: Yes Thyroid:: Yes Depression:: Yes Other Medical/Surgical Issues:: Hx [place] Palsy PTCA:: Yes - 2008 Orthopedic:: Yes - 2016 Left total knee. Discharge/Home/Social Eval Patient Lives With:: Radha lives in [place], but will be moving to [place] in January or February. Cardiac Rehabilitation Info Cardiac Rehabilitation Program Information: Cardiac Rehabilitation is important for patients like you who are recovering from a heart problem. Cardiac rehabilitation programs are recognized as integral to the continued care of the patient with coronary heart disease. The cardiac rehabilitation program is designed to optimize a patient's physical, psychological, and social functioning. Health nanny caregiver work in cardiac rehabilitation programs and assist you with getting the treatments you need to get stronger and healthier - like exercise, healthy eating habits, and medications. Cardiac rehabilitation has been show to help people with heart problems live longer and have better life enjoyment than people who do not go to cardiac rehabilitation. Please contact the Cardiac Rehabilitation Program at [facility] at in two weeks if you have not heard from them.
--- NOTE | 2018-12-16 13:56 | CRPH1.INSTRU ---
General Education CAD and cardiac anatomy and function:: Patient communicates acknowledgment, Needs reinforcement Explanation of diagnoses and procedures:: Patient communicates acknowledgment, Needs reinforcement Sign/Symptoms of NV:: Patient communicates acknowledgment, Needs reinforcement Antiplatelet therapy: Patient communicates acknowledgment, Needs reinforcement Proper use of NTG-SL: Patient communicates acknowledgment, Needs reinforcement Emergency procedures and activation of EMS: Patient communicates acknowledgment, Needs reinforcement Compliance of all prescribed medications: Patient communicates acknowledgment, Needs reinforcement Smoking Patient Nicotine/Smoking Risk Factors Are:: Never smoked Nicotine/Smoking Response Code:: Not instructed Dyslipidemia Patient Dyslipidemia Risk Factors Are:: Total Cholesterol, Triglycerides, HDL, LDL Recommendations Include:: Lipid profile provided, Reviewed NCEP/ATP guidelines, Therapeutic Lifestyle Change dietary guidelines Dyslipidemia Response Code:: Patient communicates acknowledgment, Needs reinforcement Overweight/Obesity Patient Overweight/Obesity Risk Factors Are:: Obesity - > or = 30 Recommendations Include:: Weight loss of 5-10%, Reduced calorie diet, Exercise 5-7 times/week Overweight/Obesity:: Patient communicates acknowledgment, Needs reinforcement Hypertension Recommendations Include:: Maintain BP <130/85, DASH dietary guidelines, Decrease/maintain normal body weight, Moderation of ETOH Hypertension:: Patient communicates acknowledgment, Needs reinforcement Heart Disease Patient Heart Disease Risk Factors Are:: Family history of heart disease < 65 years old, Previous cardiac event Recommendations Include:: Educated family members of their risk, Educated family members of importance of prevention of heart disease Heart Disease Response Code:: Patient communicates acknowledgment, Needs reinforcement Diabetes Diabetes:: Not instructed Metabolic Syndrome Patient Metabolic Syndrome Risk Factors Are [3 of 5]:: Waist circumference > 35 [female] or 40 [male], High triglyceride >150, Hypertension Recommendations Include:: Reinforce compliance to risk factor modifications, Encouraged follow-up with Primary Care Physician - Family hx of Diabetes Metabolic Syndrome Response Code:: Patient communicates acknowledgment, Needs reinforcement Sedentary Patient Sedentary Risk Factors Are:: Lack of regular exercise Recommendations Include:: Aerobic exercise 5-7 times/week for 20-30 minutes continuously, Benefits of regular exercise, Discussed home walking program, Monitored Outpatient Cardiac Rehab Sedentary Response Code:: Patient communicates acknowledgment, Needs reinforcement Stress Recommendations Include:: Identification of stressors, and assessment of coping skills, Stress management techniques Stress Response Code:: Patient communicates acknowledgment, Needs reinforcement
[2018-12-16] MEDS: Levothyroxine 50 MCG Tablet PO (14:14)
[2018-12-16] MEDS: Hydroxychloroquine 200 MG Tablet PO ×2 (14:14→21:27)
[2018-12-16] MEDS: Metoprolol Tartrate 25 MG Tablet 12.5 MG PO (21:28)
[2018-12-16] MEDS: Atorvastatin Calcium 10 MG Tablet PO (21:28)
[2018-12-17] VITALS (10 sets, daily range): BP systolic 105–132; BP diastolic 50–85; PULSE 66–85; RESP 11–19; TEMP 36.7–36.8; O2SAT 91–97
[2018-12-17 04:11] LABS: Hematocrit 40.1 % (37-47); Hemoglobin 13.5 g/dl (12.0-15.0); Mean Corp Hgb Conc 33.7 g/gl (32-36); Mean Corpuscular Hgb 28.8 pg (27.0-32.0); Mean Corpuscular Volume 85.5 fL (81-99); Mean Platelet Vol. 11.2 fl (6.2-12.0); Platelet Count 161 K/mm3 (150-450); RBC Distribution Width CV 13.7 % (11.6-14.6); Red Blood Count 4.69 M/mm3 (4.2-5.4); Scan Indicated on CBC? Y/N NO; White Blood Count 7.2 K/mm3 (4.4-11.0)
[2018-12-17 04:25] LABS: Anion Gap 9 (5-15); BUN 14 mg/dL (7-18); BUN/Creat Ratio 15.2 RATIO (10-20); Calcium,Total 9.2 mg/dL (8.5-10.1); Chloride 108 mmol/L (98-107); Cholesterol 136 mg/dL (200); Creatinine, Serum 0.92 mg/dL (0.55-1.02); EST Glomerular Filtration Rate 63 mL/min (>60); Est Glom Filt Rate - Afr Amer 77 mL/min (>60); Estimated Creatinine Clearance 49.01 ml/min; Glucose 121 mg/dL (74-106); High Density Lipoprotein 65 mg/dL; Potassium 4.1 mmol/L (3.5-5.1); Sodium Level 143 mmol/L (136-145); Triglycerides 119 mg/dL; Very Low Density Lipoprotein 24 mg/dL (5-40)
[2018-12-17] MEDS: Levothyroxine 50 MCG Tablet PO (06:45)
[2018-12-17] MEDS: Losartan Potassium 25 MG Tablet PO (08:28)
[2018-12-17] MEDS: Clopidogrel Bisulfate 75 MG Tablet PO (08:28)
[2018-12-17] MEDS: Metoprolol Tartrate 25 MG Tablet 12.5 MG PO (08:29)
[2018-12-17] MEDS: Aspirin E.C. 81 MG Tablet PO (08:29)
[2018-12-17] MEDS: amLODIPine 2.5 MG Tablet PO (08:31)
[2018-12-17] MEDS: Hydroxychloroquine 200 MG Tablet PO (08:32)
--- NOTE | 2018-12-17 09:06 | PCM.PN.CARD ---
Subjectve: Patient seen and evaluated. Appears to be doing well. Objective: Vital Signs Temp Pulse Resp BP Pulse Ox 98.2 F 83 14 116/65 96 12/17/18 04:00 12/17/18 08:29 12/17/18 08:00 12/17/18 08:29 12/17/18 08:00 Oxygen Delivery Method Room Air Weight: 232 lb 12.93 oz Body Mass Index (BMI) 38.5 Intake and Output for Last 24 Hours 12/15/18 12/16/18 12/17/18 23:59 23:59 23:59 Intake Total 1479 / 1479 Output Total 600 / 600 Balance 879 / 879 General: Awake, Alert, Oriented x 3 HEENT: PERRL, EOMI, Sclera Non Icteric Neck: Supple, Good ROM, No Lymph Node Enlargement Lungs: Clear to auscultation Cardiovascular: Regular Rhythm, Normal S1, Normal S2, No Murmurs, No Rubs, No Gallops Vascular: No Carotid Bruits, Normal Femoral Pulses, Normal Radial Pulses, Normal Dorsalis Pedal Pulse, Normal Posterior Tibial Pulses Abdomen: Bowel Sounds Present, Soft, Non Tender, No HSM, No Organomegaly Extremities: No Cyanosis, No Clubbing, No edema Lymphatic: No Lymph Node Enlargement Neurological: No Focal Motor or Sensory Deficit 12/17/18 04:00: Sodium 143, Potassium 4.1, Chloride 108 H, Carbon Dioxide 26.0, Anion Gap 9, BUN 14, Creatinine 0.92, Est GFR (MDRD) Af Amer 77, Est GFR (MDRD) Non-Af 63, BUN/Creatinine Ratio 15.2, Glucose 121 H, Calcium 9.2, Triglycerides 119, Cholesterol 136, LDL Cholesterol 47, VLDL Cholesterol 24, HDL Cholesterol 65 12/17/18 04:00: WBC 7.2, RBC 4.69, Hgb 13.5, Hct 40.1, MCV 85.5, MCH 28.8, MCHC 33.7, RDW 13.7, RDW Differential 42.0, Plt Count 161, MPV 11.2 Rhythm: EKG: ECHO: Stress Test: Cardiac Cath: PCI: CT Surgery: Holter monitor: EPS: PPM: CXR: Chest CT Scan: Medical Necessity - Tobacco Use Smoking Status: Never smoker Assessment/Plan 1. Status post PCI of the proximal right coronary artery. Patient tolerated the procedure well and appears to be doing well with no groin hematomas hemoglobin remained stable. Patient can be discharged for outpatient follow-up with Dr. Campbell.
--- NOTE | 2018-12-17 09:07 | PCM.DC.CCA ---
Discharge Diet: Low fat/ Low Cholesterol Discharge Activity: Return to Normal Activity Call your doctor if your incision/area has: Increased Pain/ Swelling, Increased Redness, Foul Smelling Discharge, Swelling at the incision site Call your doctor if you observe: Fever of 101 or Higher Additional Dressing/Incision Instructions:: Keep the dressing (bandage) on until the next morning. You may then shower, but do not take a tub bath for 5 days after your test. It is normal to have some tenderness and discomfort at the puncture site. Sometimes bruising also occurs. However, if pain, numbness, or coldness occurs below the puncture site (in your leg, toes, arms or fingers) call your doctor at once. You may have a small, marble sized knot at the puncture site. This is normal. Do not rub it. It will go away in 4-6 weeks. Bleeding can occur from the area where the puncture was done. Blood may spurt or drip from the site. If blood spurts, apply pressure right away to stop bleeding and call 911. Although rare, bleeding into the tissue (hematoma) can also occur. If this happens, a large, firm area goose egg under the skin will appear. If any of these occur, lie down as flat as you can and have someone apply firm pressure to the cath site with a gauze pad or a clean washcloth for 10-15 minutes. Call 911 or go to the Emergency Department. Allergies/Adverse Reactions: Allergies No Known Allergies Allergy (Verified 12/06/18 14:22) Medications to take at Discharge Cholecalciferol (Vitamin D3) [Vitamin D3] 2,000 unit PO DAILY 07/17/16 Hydroxychloroquine [Plaquenil] 200 mg PO BID 07/17/16 Levothyroxine [Synthroid] 50 mcg PO DAILY 07/17/16 aspirin 81 mg tablet,delayed release 81 mg PO QDAY 02/03/18 metoprolol tartrate 25 mg tablet 12.5 mg PO BID #90 tab 02/04/18 losartan 25 mg tablet 25 mg PO DAILY #90 tab 03/02/18 amlodipine 2.5 mg tablet 2.5 mg PO DAILY #90 tab 12/06/18 clopidogrel 75 mg tablet 75 mg PO DAILY #30 tab 12/06/18 lovastatin 40 mg tablet 40 mg PO QPM #90 tab 12/06/18 nitroglycerin 0.4 mg sublingual tablet 0.4 mg SUBLINGUAL Q5-15M PRN #25 tab 12/06/18 Orders to be completed after discharge: Phase II, Outpatient Cardiac Rehab Location: None Selected Primary Care Physician: Nicole Tran DO [Primary Care Provider] - Test Results: Test results from this visit will be discussed in further detail at your follow-up appointment, if applicable. Please Follow Up With: call jese office [phone] Proposed Discharge Date: 12/17/18 Cardiac Rehabilitation Info Cardiac Rehabilitation Program Information: Cardiac Rehabilitation is important for patients like you who are recovering from a heart problem. Cardiac rehabilitation programs are recognized as integral to the continued care of the patient with coronary heart disease. The cardiac rehabilitation program is designed to optimize a patient's physical, psychological, and social functioning. Health care analyst work in cardiac rehabilitation programs and assist you with getting the treatments you need to get stronger and healthier - like exercise, healthy eating habits, and medications. Cardiac rehabilitation has been show to help people with heart problems live longer and have better life enjoyment than people who do not go to cardiac rehabilitation. Please contact the Cardiac Rehabilitation Program at [facility] at in two weeks if you have not heard from them.
--- NOTE | 2018-12-17 09:11 | DCINST_ITS ---
Discharge Diet: Low fat/ Low Cholesterol Discharge Activity: Return to Normal Activity Call your doctor if your incision/area has: Increased Pain/ Swelling, Increased Redness, Foul Smelling Discharge, Swelling at the incision site Call your doctor if you observe: Fever of 101 or Higher Additional Dressing/Incision Instructions:: Keep the dressing (bandage) on until the next morning. You may then shower, but do not take a tub bath for 5 days after your test. It is normal to have some tenderness and discomfort at the puncture site. Sometimes bruising also occurs. However, if pain, numbness, or coldness occurs below the puncture site (in your leg, toes, arms or fingers) call your doctor at once. You may have a small, marble sized knot at the puncture site. This is normal. Do not rub it. It will go away in 4-6 weeks. Bleeding can occur from the area where the puncture was done. Blood may spurt or drip from the site. If blood spurts, apply pressure right away to stop bleeding and call 911. Although rare, bleeding into the tissue (hematoma) can also occur. If this happens, a large, firm area goose egg under the skin will appear. If any of these occur, lie down as flat as you can and have someone apply firm pressure to the cath site with a gauze pad or a clean washcloth for 10-15 minutes. Call 911 or go to the Emergency Department. Allergies/Adverse Reactions: Allergies No Known Allergies Allergy (Verified 12/06/18 14:22) Medications to take at Discharge Cholecalciferol (Vitamin D3) [Vitamin D3] 2,000 unit PO DAILY 07/17/16 Hydroxychloroquine [Plaquenil] 200 mg PO BID 07/17/16 Levothyroxine [Synthroid] 50 mcg PO DAILY 07/17/16 aspirin 81 mg tablet,delayed release 81 mg PO QDAY 02/03/18 metoprolol tartrate 25 mg tablet 12.5 mg PO BID #90 tab 02/04/18 losartan 25 mg tablet 25 mg PO DAILY #90 tab 03/02/18 amlodipine 2.5 mg tablet 2.5 mg PO DAILY #90 tab 12/06/18 clopidogrel 75 mg tablet 75 mg PO DAILY #30 tab 12/06/18 lovastatin 40 mg tablet 40 mg PO QPM #90 tab 12/06/18 nitroglycerin 0.4 mg sublingual tablet 0.4 mg SUBLINGUAL Q5-15M PRN #25 tab 12/06/18 Orders to be completed after discharge: Phase II, Outpatient Cardiac Rehab Location: None Selected Primary Care Physician: Nicole Tran DO [Primary Care Provider] - Test Results: Test results from this visit will be discussed in further detail at your follow- up appointment, if applicable. Please Follow Up With: call jese office [phone] Proposed Discharge Date: 12/17/18 Cardiac Rehabilitation Info Cardiac Rehabilitation Program Information: Cardiac Rehabilitation is important for patients like you who are recovering fro m a heart problem. Cardiac rehabilitation programs are recognized as integral to the continued care of the patient with coronary heart disease. The cardiac rehabilitation program is designed to optimize a patient's physical, psychological, and social functioning. Health day care home provider work in cardiac rehabilitation programs and assist you with getting the treatments you need to get stronger and healthier - like exercise, healthy eating habits, and medications. Cardiac rehabilitation has been show to help people with heart problems live longer and have better life enjoyment than people who do not go to cardiac rehabilitation. Please contact the Cardiac Rehabilitation Program at [facility] at in two weeks if you have not heard from them.
--- NOTE | 2018-12-17 09:39 | NURSING ---
reviewed discharge instructions voiced understanding
--- NOTE | 2018-12-17 10:00 | EKG12_ITS ---
Test Reason : AM EKG Blood Pressure : / mmHG Vent. Rate : 077 BPM Atrial Rate : 077 BPM P-R Int : 192 ms QRS Dur : 086 ms QT Int : 420 ms P-R-T Axes : 059 -60 051 degrees QTc Int : 475 ms Normal sinus rhythm Left axis deviation Low Voltage QRS (Limb Leads) R/S >1.0: Consider Lead Placement, Early Transition, Normal Variant, or Posterior SC, Age Undetermine d Abnormal ECG Confirmed by DENA MAY, ALICIA ([id number]), newspaper copy editor HODAN WHELAN ([id number]) on 12/21/2018 11:47:05 AM Referred By: Leon Campbell Confirmed By:ALICIA FERNANDES MD
[2023-09-17 15:34] LABS: ACT Activated Clotting Time 219 sec (74-137)
== END 2018-12-17 10:10 | disposition home or self-care (01) ==
LOC: CLSP 06:22 → ICU 12-19 07:24
PROVIDERS: Family Provider Family Medicine; PCP Family Medicine; Referring Provider Internal Medicine Cardiovascular Disease; Visit Provider Internal Medicine Cardiovascular Disease
DX: I25.10 Atherosclerotic heart disease of native coronary artery without angina pectoris (principal); E78.5 Hyperlipidemia, unspecified; I10 Essential (primary) hypertension; R07.9 Chest pain, unspecified; I25.2 Old myocardial infarction; Z95.5 Presence of coronary angioplasty implant and graft; E03.9 Hypothyroidism, unspecified; G47.33 Obstructive sleep apnea (adult) (pediatric)
CPT/HCPCS: 36415; 80048; 80061; 85027; 85347; 85610; 85730; 92928; 93005; 93458; 99152; J7030; J7040; C1725; C1769; C1874; C1887; C1894; C9600; Q9967